=== PATIENT | female | born 1995 | race African-American/Black ===

== ENCOUNTER → 2017-01-03 | Emergency (ER) | payer SELFPAY ==
[~2017-01-03] VITALS: Ht 162.6 cm; Wt 49.9 kg
[~2017-01-03] MED LIST: CEPH500C PO; DOXY100C42 PO; LIDOCAINE/EPI 1%-1:100,000 (XYLOCAINE) 20ML INJ ONE; METR500T PO; NAPR500T3 PO
--- NOTE | 2017-01-03 11:01 | ED Upper Extremity ---
General Chief Complaint: Laceration Stated Complaint: RIGHT ARM LAC Nursing Triage Note: PT HIT A WINDOW IN ANGER AND HER RIGHT ARM WENT THROUGH IT. PT HAS TWO DEEP LACERATIONS APPROXIMATELY 2 INCHES LONG TO THE RIGHT FOREARM. BLEEDING IS MINIMAL AT THIS TIME. RIGHT RADIAL PULSE PRESENT Source: patient Exam Limitations: no limitations History of Present Illness Time seen by provider: 11:00 Initial Comments to ER with laceration to the volar side of the right forearm after she punched a window at home out of anger Onset: just prior to arrival Severity: moderate Pain/Injury Location: right forearm Method of Injury: unknown Modifying Factors: Worse With Movement Allergies and Home Medications Allergies Coded Allergies: No Known Drug Allergies (Verified Allergy, Unknown, 08/25/07) Constitutional: see HPI EENTM: see HPI Respiratory: no symptoms reported Cardiovascular: no symptoms reported Genitourinary: no symptoms reported Musculoskeletal: no symptoms reported Skin: see HPI Psychiatric/Neurological: No Symptoms Reported Past Mvpvkrq-Kibmrp-Bqupfi Hx Patient Social History Alcohol Use: Occasionally Uses Recreational Drug Use: Yes Drug of Choice: MARIJUANA Smoking Status: Current Everyday Smoker Type Used: Cigarettes Recent Foreign Travel: No Contact w/Someone Who Travel: No Recent Infectious Disease Expo: No Recent Hopitalizations: Yes (only at age 6 when spleen repaired and appendectomy ) Surgeries HX Surgeries: Yes Surgeries: Abdominal, Eye Surgery Respiratory Hx Respiratory Disorders: No Cardiovascular Hx Cardiac Disorders: No Neurological Hx Neurological Disorders: No Reproductive System Hx Reproductive Disorders: No Female Reproductive Disorders: Denies Genitourinary Hx Genitourinary Disorders: Yes Genitourinary Disorders: UTI-Chronic Gastrointestinal Hx Gastrointestinal Disorders: Yes Musculoskeletal Hx Musculoskeletal Disorders: No Endocrine Hx Endocrine Disorders: No HEENT HX ENT Disorders: Yes (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 ) Cancer Hx Cancer: No Psychosocial Hx Psychiatric Problems: No Integumentary HX Skin/Integumentary Disorder: No Blood Transfusions Hx Blood Disorders: No Physical Exam Vital Signs Vital Sign - Last 12Hours 01/03/17 10:43 Temp 98.0 Pulse 70 Resp 16 B/P (MAP) 127/102 Capillary Refill : General Appearance: WD/WN, no apparent distress HEENT: PERRL/EOMI, normal ENT inspection Neck: non-tender, full range of motion Respiratory: no respiratory distress, no accessory muscle use Gastrointestinal: non tender, soft Shoulder: normal inspection, non-tender Elbow/Forearm: Right, limited ROM (several lacerations to the volar surface of the right forearm to the longest her about 4 cm in length and depth is to the muscle fascia. She has strong radial pulse. I'm not able to palpate the ulnar pulse but she has a positive Alexander's test.) Laceration Repair : Wound Location: Upper Extremities Wound Length (cm): 9 Wound's Depth, Shape: into muscle Wound Explored: clean Irrigated w/ Saline (ccs): 200 Anesthesia: Lidocaine w/ Epi Volume Anesthetic (ccs): 10 Suture: Prolene Suture Size: 4-0 Number of Sutures: 9 Layer Closure?: 1 Number Deep Layer Sutures: 0 Progress 10 mL of 1 percent lidocaine with epinephrine. Wound was then closed with a total of 7 simple interrupted sutures size 4-0 Prolene and 2 running sutures size 4-0 Prolene. Progress/Results/Core Measures Results/Orders My Orders Orders - FIDELIA VALDEZ APRN Lidocaine/Epi 1% 1:100,000 (Xylocaine /E (01/03/17 11:00) Forearm, Right, 2 Views (01/03/17 11:00) Medications Given in ED Current Medications Medications Dose Ordered Sig/Bradley Route Start Time Stop Time Status Last Admin Dose Admin Lidocaine/ Epinephrine 20 ml ONCE ONCE INJ 01/03/17 11:00 01/03/17 11:01 DC 01/03/17 11:11 10 ML Vital Signs/I&O Vital Sign - Last 12Hours 01/03/17 10:43 Temp 98.0 Pulse 70 Resp 16 B/P (MAP) 127/102 Departure Impression Impression: Primary Impression: Forearm laceration Disposition: HOME, SELF-CARE Condition: Stable Departure-Patient Inst. Decision time for Depature: 11:43 Referrals: [facility] (PCP/Family) Primary Care Physician Patient Instructions: Laceration Repair With Stitches (DC) Add. Discharge Instructions: 1. Keep this area clean and covered and dry today 2. Starting tomorrow you may take the bandage off leaving it open to air. If you're at work he may keep it covered with a Band-Aid 3. You may let water run over it in the shower starting tomorrow 4. Return to ER for any infection signs such as redness, pus like drainage or any other concerns 5. Keep the dressing on it today 6. Antibiotics as directed 7. Return to the emergency room in 7-10 days, probably closer to 10 days to have the stitches removed All discharge instructions reviewed with patient and/or family. Voiced understanding. Scripts Cephalexin (Cephalexin) 500 Mg Capsule 500 MG PO TID for 7 Days, CAP Prov: FIDELIA VALDEZ APRN 01/03/17 FIDELIA VALDEZ APRN Jan 03, 2017 11:01
--- NOTE | 2017-01-03 11:41 | Diagnostic Imaging Report ---
INDICATION: Lacerations by glass. FINDINGS: Extensive soft tissue irregularities involving the mid third of the forearm along its palmar and ulnar aspect. Air and fluid and soft tissue distortion owing to the lacerations could obscure an underlying foreign body. No opaque foreign body is found. There is no fracture. IMPRESSION: Extensive soft tissue injury, but no appreciable retained opaque foreign body or osseous injury. Dictated by: Dictated on workstation # [id number]
== END | disposition home or self-care (01) ==
LOC: EDUNIT# 10:38 → ER 10:41
DX: S51.811A Laceration without foreign body of right forearm, initial encounter (principal); F17.210 Nicotine dependence, cigarettes, uncomplicated; W25.XXXA Contact with sharp glass, initial encounter; Y99.8 Other external cause status
CPT/HCPCS: 73090; 99282

== ENCOUNTER → 2017-01-11 | Emergency (ER) | payer SELFPAY ==
[~2017-01-11] VITALS: Ht 162.6 cm; Wt 50.1 kg
[~2017-01-11] MED LIST changes: -LIDOCAINE/EPI 1%-1:100,000 (XYLOCAINE) 20ML INJ ONE
[2017-01-11 14:28] VITALS: BP 138/74
== END | disposition home or self-care (01) ==
LOC: EDUNIT# 13:41 → ER 13:43
DX: S51.811D Laceration without foreign body of right forearm, subsequent encounter (principal)

== ENCOUNTER 2017-01-14 17:23 | Emergency (ER) | payer SELFPAY ==
[~2017-01-14] VITALS: Ht 162.6 cm; Wt 49.0 kg
[2017-01-14 17:55] VITALS: BP 120/89
== END 2017-01-14 17:55 | disposition home or self-care (01) ==
LOC: EDUNIT# 17:23 → ER 17:24
DX: S51.811D Laceration without foreign body of right forearm, subsequent encounter (principal)

== ENCOUNTER 2017-01-17 17:52 | Emergency (ER) | payer SELFPAY ==
[~2017-01-17] VITALS: Ht 163.2 cm; Wt 49.0 kg
--- NOTE | 2017-01-17 18:23 | ED Syncope ---
General Chief Complaint: Dizziness/Syncope Stated Complaint: FAINTING Source of Information: Patient Exam Limitations: No Limitations History of Present Illness Time Seen by Provider: 18:20 Initial Comments To ER with c/o syncope tonight while at work at [employer]. She states that immediately before passing out she felt very hot and flushed and she could hear voices seemingly getting further away. She states that she then remembers just waking up. Afterwards she did vomit once. She's never passed out before though she did nearly pass out a few days ago while she was here having sutures removed from the right forearm. She did smoke marijuana earlier today. Timing/Prior Episodes: No Prior History Precipitating Factors: None Loss of Consciousness: No Loss of Consciousness Current Symptoms: No Headache, No Nausea Allergies and Home Medications Allergies Coded Allergies: No Known Drug Allergies (Verified Allergy, Unknown, 08/25/07) Home Medications Cephalexin 500 Mg Capsule, 500 MG PO TID for 7 Days Prescribed by: FIDELIA VALDEZ on 01/03/17 0605 Constitutional: see HPI EENTM: see HPI Respiratory: see HPI, No cough, No hemoptysis, No short of breath Cardiovascular: no symptoms reported Genitourinary: no symptoms reported Musculoskeletal: no symptoms reported Skin: no symptoms reported Psychiatric/Neurological: No Symptoms Reported Past Ijqeens-Phtfjl-Cspzob Hx Patient Social History Drug of Choice: MARIJUANA Type Used: Cigarettes Recent Hopitalizations: Yes (only at age 6 when spleen repaired and appendectomy ) Surgeries HX Surgeries: Yes Surgeries: Abdominal, Eye Surgery Respiratory Hx Respiratory Disorders: No Cardiovascular Hx Cardiac Disorders: No Neurological Hx Neurological Disorders: No Reproductive System Hx Reproductive Disorders: No Female Reproductive Disorders: Denies Genitourinary Hx Genitourinary Disorders: Yes Genitourinary Disorders: UTI-Chronic Gastrointestinal Hx Gastrointestinal Disorders: Yes Musculoskeletal Hx Musculoskeletal Disorders: No Endocrine Hx Endocrine Disorders: No HEENT HX ENT Disorders: Yes (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 ) Cancer Hx Cancer: No Psychosocial Hx Psychiatric Problems: No Integumentary HX Skin/Integumentary Disorder: No Blood Transfusions Hx Blood Disorders: No Physical Exam Vital Signs Vital Sign - Last 12Hours 01/17/17 18:14 Temp 99.2 Pulse 97 Resp 20 B/P (MAP) 129/98 O2 Delivery Room Air Capillary Refill : General Appearance: No Apparent Distress, WD/WN HEENT: PERRL/EOMI, TMs Normal Neck: Full Range of Motion, Normal Inspection Cardiovascular: Regular Rate, Rhythm, Normal Peripheral Pulses Respiratory: Normal Breath Sounds, No Accessory Muscle Use, No Respiratory Distress Gastrointestinal: Non Tender, Soft Neurologic/Psychiatric: Alert, Oriented x3, No Motor/Sensory Deficits Cranial Nerves: Normal Hearing, Normal Speech, PERRL Skin: Normal Color, Warm/Dry Laceration Repair : Suture Size: 4-0 Progress/Results/Core Measures Results/Orders Lab Results Laboratory Tests Test 01/17/17 18:43 01/17/17 18:44 Range/Units White Blood Count 5.4 4.3-11.0 10^3/uL Red Blood Count 4.79 4.35-5.85 10^6/uL Hemoglobin 9.6 L 11.5-16.0 G/DL Hematocrit 32 L 35-52 % Mean Corpuscular Volume 66 L 80-99 FL Mean Corpuscular Hemoglobin 20 L 25-34 PG Mean Corpuscular Hemoglobin Concent 30 L 32-36 G/DL Red Cell Distribution Width 16.3 H 10.0-14.5 % Platelet Count 211 130-400 10^3/uL Mean Platelet Volume 11.9 H 7.4-10.4 FL Neutrophils (%) (Auto) 56 42-75 % Lymphocytes (%) (Auto) 29 12-44 % Monocytes (%) (Auto) 12 0-12 % Eosinophils (%) (Auto) 2 0-10 % Basophils (%) (Auto) 1 0-10 % Neutrophils # (Auto) 3.0 1.8-7.8 X 10^3 Lymphocytes # (Auto) 1.6 1.0-4.0 X 10^3 Monocytes # (Auto) 0.7 0.0-1.0 X 10^3 Eosinophils # (Auto) 0.1 0.0-0.3 10^3/uL Basophils # (Auto) 0.0 0.0-0.1 10^3/uL D-Dimer 0.35 0.00-0.49 UG/ML Sodium Level 137 135-145 MMOL/L Potassium Level 3.8 3.6-5.0 MMOL/L Chloride Level 107 98-107 MMOL/L Carbon Dioxide Level 19 L 21-32 MMOL/L Anion Gap 11 5-14 MMOL/L Blood Urea Nitrogen 15 7-18 MG/DL Creatinine 0.74 0.60-1.30 MG/DL Estimat Glomerular Filtration Rate > 60 BUN/Creatinine Ratio 20 Glucose Level 81 70-105 MG/DL Calcium Level 9.2 8.5-10.1 MG/DL Total Bilirubin 0.6 0.1-1.0 MG/DL Aspartate Amino Transf (AST/SGOT) 16 5-34 U/L Alanine Aminotransferase (ALT/SGPT) 6 0-55 U/L Alkaline Phosphatase 43 40-136 U/L Total Protein 7.2 6.4-8.2 G/DL Albumin 4.1 3.2-4.5 G/DL Urine Color YELLOW Urine Clarity SLIGHTLY CLOUDY Urine pH 8 5-9 Urine Specific [place] 1.015 L 1.016-1.022 Urine Protein NEGATIVE NEGATIVE Urine Glucose (UA) NEGATIVE NEGATIVE Urine Ketones NEGATIVE NEGATIVE Urine Nitrite NEGATIVE NEGATIVE Urine Bilirubin NEGATIVE NEGATIVE Urine Urobilinogen NORMAL NORMAL MG/DL Urine Leukocyte Esterase NEGATIVE NEGATIVE Urine RBC (Auto) NEGATIVE NEGATIVE Urine RBC NONE /HPF Urine WBC NONE /HPF Urine Squamous Epithelial Cells NONE /HPF Urine Crystals NONE /LPF Urine Amorphous Sediment LARGE AIDA PHOSPHATE H /LPF Urine Bacteria NEGATIVE /HPF Urine Casts NONE /LPF Urine Mucus NEGATIVE /LPF Urine Culture Indicated NO Urine Opiates Screen NEGATIVE NEGATIVE Urine Oxycodone Screen NEGATIVE NEGATIVE Urine Methadone Screen NEGATIVE NEGATIVE Urine Propoxyphene Screen NEGATIVE NEGATIVE Urine Barbiturates Screen NEGATIVE NEGATIVE Ur Tricyclic Antidepressants Screen NEGATIVE NEGATIVE Urine Phencyclidine Screen NEGATIVE NEGATIVE Urine Amphetamines Screen NEGATIVE NEGATIVE Urine Methamphetamines Screen NEGATIVE NEGATIVE Urine Benzodiazepines Screen NEGATIVE NEGATIVE Urine Cocaine Screen NEGATIVE NEGATIVE Urine Cannabinoids Screen POSITIVE H NEGATIVE My Orders Orders - FIDELIA VALDEZ SALES OFFICE COORDINATOR Cbc With Automated Diff (01/17/17 18:19) Fibrin Degradation Products (01/17/17 18:19) Comprehensive Metabolic Panel (01/17/17 18:19) Continuous Ekg Monitoring (01/17/17 18:19) Saline Lock/Iv-Start (01/17/17 18:19) Ns Iv 1000 Ml (Sodium Chloride 0.9%) (01/17/17 18:30) Ua Culture If Indicated (01/17/17 18:27) Urine Bedside (01/17/17 18:27) Drug Screen Stat (Urine) (01/17/17 18:27) Vital Signs/I&O Vital Sign - Last 12Hours 01/17/17 18:14 Temp 99.2 Pulse 97 Resp 20 B/P (MAP) 129/98 O2 Delivery Room Air Departure Communication Progress Notes 1917-ALert, laughing, pleasant, stable vitals during ER stay.l Impression Impression: Primary Impression: Syncope and collapse Disposition: HOME, SELF-CARE Condition: Stable Departure-Patient Inst. Decision time for Depature: 19:18 Referrals: NO,LOCAL PHYSICIAN (PCP/Family) Primary Care Physician Patient Instructions: Syncope (Fainting) (DC) Add. Discharge Instructions: 1. Drink plenty of fluids 2. Return to ER for any recurrent lightheadedness, palpitations, shortness of breath or other concerns All discharge instructions reviewed with patient and/or family. Voiced understanding. FIDELIA VALDEZ SALES OFFICE COORDINATOR Jan 17, 2017 18:22
[2017-01-17] MEDS ORDERED: NS IV 1000 ML 1,000 ML IV SCH (18:30)
[2017-01-17 18:52] LABS: BILIRUBIN,URINE NEGATIVE (NEGATIVE); KETONES,URINE NEGATIVE (NEGATIVE); LEUKOCYTE ESTERASE ,URINE NEGATIVE (NEGATIVE); NITRITE,URINE NEGATIVE (NEGATIVE); PH,URINE 8 (5-9); PROTEIN,URINE NEGATIVE (NEGATIVE); UROBILINOGEN,URINE NORMAL (NORMAL)
[2017-01-17 18:55] LABS: BASOPHILS % (AUTO) 1 % (0-10); EOSINOPHILS # (AUTO) 0.1 10^3/uL (0.0-0.3); EOSINOPHILS % (AUTO) 2 % (0-10); LYMPHOCYTES # (AUTO) 1.6 X 10^3 (1.0-4.0); LYMPHOCYTES % (AUTO) 29 % (12-44); MEAN CORPUSCULAR HEMOGLOBIN 20 PG (25-34); MEAN CORPUSCULAR HGB CONC 30 G/DL (32-36); MEAN CORPUSCULAR VOLUME 66 FL (80-99); MEAN PLATELET VOLUME 11.9 FL (7.4-10.4); MONOCYTES # (AUTO) 0.7 X 10^3 (0.0-1.0); MONOCYTES % (AUTO) 12 % (0-12); NEUTROPHILS % (AUTO) 56 % (42-75); PLATELET COUNT 211 10^3/uL (130-400); RED BLOOD COUNT 4.79 10^6/uL (4.35-5.85); RED CELL DISTRIBUTION WIDTH 16.3 % (10.0-14.5); WHITE BLOOD COUNT 5.4 10^3/uL (4.3-11.0)
[2017-01-17 19:13] LABS: ALANINE AMINOTRANSFERASE 6 U/L (0-55); ALBUMIN 4.1 G/DL (3.2-4.5); ANION GAP 11 MMOL/L (5-14); ASPARTATE AMINO TRANSFERASE 16 U/L (5-34); BILIRUBIN,TOTAL 0.6 MG/DL (0.1-1.0); BLOOD UREA NITROGEN 15 MG/DL (7-18); BUN/CREATININE RATIO 20; CALCIUM 9.2 MG/DL (8.5-10.1); CARBON DIOXIDE 19 MMOL/L (21-32); CHLORIDE 107 MMOL/L (98-107); CREATININE SERUM 0.74 MG/DL (0.60-1.30); GFR ESTIMATED > 60; GLUCOSE 81 MG/DL (70-105); POTASSIUM 3.8 MMOL/L (3.6-5.0); SODIUM 137 MMOL/L (135-145); TOTAL PROTEIN 7.2 G/DL (6.4-8.2)
== END 2017-01-17 20:19 | disposition home or self-care (01) ==
LOC: EDUNIT# 17:52 → ER 17:54
DX: R55 Syncope and collapse (principal); F12.90 Cannabis use, unspecified, uncomplicated
CPT/HCPCS: 36415; 80053; 80306; 81000; 84703; 85025; 85379; 96360

== ENCOUNTER → 2017-10-16 | Outpatient (CLI) | payer MEDICAID ==
[~2017-10-16] MED LIST changes: -NAPR500T3 PO; +NAPR500T4 PO
--- NOTE | 2017-10-16 11:23 | Diagnostic Imaging Report ---
PROCEDURE: US OB SINGLE FETUS <14 WKS. TECHNIQUE: Multiple real-time grayscale images were obtained over the gravid uterus in various projections. INDICATION: Dating. FINDINGS: There is an intrauterine gestational sac containing a pole. Turner-rump length measurement is 2.6 cm consistent with 9 weeks 3 days gestation. heart rate was recorded at 169 beats per minute. No ambreen-gestational sac hemorrhage is detected. Yolk sac is visualized. The ovaries are not visualized. No adnexal mass or free fluid is seen. IMPRESSION: Single live IUP 9 weeks 3 days gestational age. The estimated date of confinement sonographically is 05/18/2018. Dictated by: Dictated on workstation # [id number]
== END ==
LOC: RAD 09:56
PROVIDERS: ATTEND Family Medicine
DX: Z34.01 Encounter for supervision of normal first pregnancy, first trimester (principal); Z3A.09 9 weeks gestation of pregnancy
CPT/HCPCS: 76801

== ENCOUNTER → 2018-03-23 | Outpatient (CLI) | payer MEDICAID ==
[~2018-03-23] MED LIST changes: +NAPR-915 PO; -NAPR500T4 PO
== END ==
LOC: LAB 10:43
PROVIDERS: ATTEND Family Medicine
DX: O36.1930 Maternal care for other isoimmunization, third trimester, not applicable or unspecified (principal)
CPT/HCPCS: 86886

== ENCOUNTER → 2018-04-16 | Outpatient (CLI) | payer MEDICAID ==
--- NOTE | 2018-04-16 14:48 | Diagnostic Imaging Report ---
INDICATION: Decreased fundal height. TECHNIQUE: Multiple real-time grayscale images were obtained over the gravid uterus. COMPARISON: 10/16/2017. FINDINGS: The previous OB ultrasound exam of 10/16/2017 noted a single live fetus at approximately 9 weeks 3 days gestation. On this exam, the fetus is again identified. The fetus is cephalic in presentation. heart motion was noted and a rate of 160 BPM was recorded. A complete survey was not obtained. Reportedly, the patient has had a prior survey at [facility] in [place], [place]. The amount of fluid volume is 12 cm (normal 8 to 22 cm). The placenta is anterior and there is no previa. The placenta is grade 3. The growth parameters average 35 weeks 4 days +/-3.5 weeks. The estimated weight is in the 74th percentile. The cervix was not well visualized due to the low position of the head. IMPRESSION: 1. There is a single live fetus at approximately 35 weeks 3 days gestation +/-1 week. The EDC remains May 18, 2018. 2. There were no obvious abnormalities identified. 3. The growth parameters have progressed as expected since the prior exam. Biometrical measurements are as follows: Biparietal 8.3 cm, age 33 weeks 3 days. Head circumference 31.31 cm, age 35 weeks 1 days. Abdominal circumference 33.52 cm, age 37 weeks 3 days. Femur length 7.03 cm, age 36 weeks 1 days. Sonographic estimate age: 35 weeks 4 days. Sonographic estimated date of delivery: 05/17/2018. Estimated Weight: 2915 gm (+/- 426 gm). LMP percentile: 74%. heart rate: 160 beats per minute. number: 1 of 1. Dictated by: Dictated on workstation # [id number]
== END ==
LOC: RAD 13:04
PROVIDERS: ATTEND Family Medicine
DX: O26.843 Uterine size-date discrepancy, third trimester (principal); Z3A.35 35 weeks gestation of pregnancy
CPT/HCPCS: 76816

== ENCOUNTER 2018-05-17 16:49 | Outpatient (CLI) | payer MEDICAID ==
[~2018-05-17] VITALS: Ht 165.1 cm; Wt 67.2 kg
[2018-05-17 17:05] VITALS: BP 152/87
[2018-05-17] MEDS ORDERED: NS IV 1000 ML 1,000 ML IV SCH ×2 (17:30→19:00)
[2018-05-17] MEDS ORDERED: morphine INJ 4 MG/ML 1 ML (VIAL/SYRINGE) IVP PRN (17:30)
[2018-05-17 18:00] VITALS: BP 133/76
[2018-05-17] MEDS ORDERED: PREN-53 PO (18:01)
[2018-05-17] MEDS ORDERED: FERR-84 PO (18:01)
[2018-05-17 19:15] VITALS: BP 130/77
--- NOTE | 2018-05-19 15:00 | Physician Query-Final Dx ---
BARNEY FELIX 05/19/18 1500: Clinic Account Progress/Dx Physician Query: Please give diagnosis Please provide dx and weeks of gestation. Date of Service May 17, 2018 at 16:49 TUCKER HAYES DO 06/03/18 0859: Clinic Account Progress/Dx DIAGNOSIS: Diagnosis 39 week GA Contractions, not in active labor BARNEY FELIX May 19, 2018 15:00 TUCKER HAYES DO Jun 03, 2018 08:59
[2018-05-23] MEDS ORDERED: FERR-84 PO (11:25)
[2018-05-23] MEDS ORDERED: IBUP-844 PO (11:25)
== END 2018-05-17 21:30 | disposition home or self-care (01) ==
LOC: WSo 16:49 → LDRP 16:49 → WSo 21:30
PROVIDERS: ATTEND Family Medicine
DX: O47.1 False labor at or after 37 completed weeks of gestation (principal); Z3A.39 39 weeks gestation of pregnancy
CPT/HCPCS: 96361; 96374; 99214

== ENCOUNTER 2018-05-19 11:55 | Outpatient (CLI) | payer MEDICAID ==
[~2018-05-19] VITALS: Ht 165.1 cm; Wt 67.2 kg
[~2018-05-19 11:55] MED LIST changes: +FERR-84 PO; +PREN-53 PO
[2018-05-19 12:15] VITALS: BP 138/86
[2018-05-19 12:45] VITALS: BP 127/86
[2018-05-19 13:20] VITALS: BP 135/97
[2018-05-19 13:21] VITALS: BP 131/82
--- NOTE | 2018-05-21 20:54 | Physician Query-Final Dx ---
BARNEY FELIX 05/21/184: Clinic Account Progress/Dx Physician Query: Please give diagnosis Please provide diagnosis and weeks of gestation Date of Service May 19, 2018 at 11:55 BERRY COOK MD 05/22/18 1635: Clinic Account Progress/Dx DIAGNOSIS: Diagnosis 40 weeks gestation Contractions without active labor BARNEY FELIX May 21, 2018 20:54 BERRY COOK MD May 22, 2018 16:35
== END 2018-05-19 13:35 | disposition home or self-care (01) ==
LOC: WSo 11:55 → LDRP 11:55 → WSo 13:35
PROVIDERS: ATTEND Family Medicine
DX: O47.1 False labor at or after 37 completed weeks of gestation (principal); Z3A.40 40 weeks gestation of pregnancy
CPT/HCPCS: 99213

== ENCOUNTER 2018-05-20 19:21 | Inpatient (IN) | payer MEDICAID ==
[~2018-05-20] VITALS: Ht 165.1 cm; Wt 69.9 kg
[2018-05-20 19:35] VITALS: BP 127/81
[2018-05-20] MEDS ORDERED: D5 LR IV SOLUTION 1,000 ML IV ONE (19:55)
[2018-05-20] MEDS: D5 LR IV SOLUTION 1,000 ML IV SCH (20:05)
[2018-05-20] MEDS ORDERED: LACTATED RINGERS 1,000 ML IV ONE (20:29)
--- NOTE | 2018-05-20 20:42 | History & Physical-OB ---
OB - Chief Complaint & HPI Date/Time Date of Admission: Date of Admission: May 20, 2018 at 7:21 pm Time Seen by Provider: 20:15 Chief Complaint/History OB-Reason for Admission/Chief: Induction of Labor Hx : 1 Hx Para: 0 Expected Date of Delivery: May 18, 2018 Gestational Age in Weeks: 40 Gestational Age in Days: 2 Indication for induction: post dates History of Labs B+, antibody POS for anti-K, RI. HIV/hepB/RPR NR. GC/chlamydia neg. Glucola normal. GBS Pos. Other complicated by anti-K antibody initially at 1:4, consulted with MFM and FOB had negative antigen testing, MFM recommended q2 mo titers and initiate MCA dopplers if increased to 1:16. Titer never increased from 1:4, last check on 03/23. 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 Social History/Family History HIV/AIDS: No Recent Infectious Disease Expo: No Sexually Transmitted Disease: No Alcohol Use: Denies Use Recreational Drug Use: No (history of THC before ) Smoking Cessation: Former smoker 2nd Hand Smoke Exposure: Yes Immunizations Tetanus Booster (TDap): Less than 5yrs Rubella: immune RPR/VDRL: Negative GBS Status: Positive HBsAG: Negative OB - Admission Exam Physical Exam HEENT: NCAT Abdomen: Non tender Extremities: Normal Cervical Dilatation: 3cm Effacement: 0% Station: -1 Membranes: Intact Heart Rate: 150's Accelerations: Accelerations Present Decelerations: Variable Decelerations Short Term Variability: Present Fci Variability: Marked (>25) Contractions on Admission: 6-10 Minutes Apart Intensity: Mild Ashby Scoring Tool (Modified) Dilation (cm): 3-4cm (2) Effacement (%): 0-30% (0) Descent/Station: -1,0 (2) Cervix Consistency: Medium(1) Cervix Position: Posterior (0) Subtract 1 point for: Postdate (-1), Nulliparity (-1) Ashby Score: 3 OB - Assessment/Plan/Diagnosis Assessment Assessment: induction of labor Admission Dx 40 weeks gestation Induction of labor Anti-K antibody positive Iron deficiency anemia GBS positive Admission Status: Inpatient Order (span 2 midnights) Reason for Inpatient Admission: Labor and delivery and course Plan Plan: Induction Induction Method: per Misoprostol Protocol Copy Copies To 1: BERRY COOK MD, BETHANY N MD May 20, 2018 8:42 pm
[2018-05-20] MEDS ORDERED: AMPICILLIN FOR IV USE 2,000 MG in NS (IVPB) 50 ML IV SCH (20:47)
[2018-05-20 20:59] LABS: BASOPHILS % (AUTO) 0 % (0-10); EOSINOPHILS # (AUTO) 0.3 10^3/uL (0.0-0.3); EOSINOPHILS % (AUTO) 4 % (0-10); HEMATOCRIT 37 % (35-52); HEMOGLOBIN 12.5 G/DL (11.5-16.0); LYMPHOCYTES # (AUTO) 1.6 X 10^3 (1.0-4.0); LYMPHOCYTES % (AUTO) 18 % (12-44); MEAN CORPUSCULAR HEMOGLOBIN 27 PG (25-34); MEAN CORPUSCULAR HGB CONC 34 G/DL (32-36); MEAN CORPUSCULAR VOLUME 80 FL (80-99); MONOCYTES # (AUTO) 0.7 X 10^3 (0.0-1.0); MONOCYTES % (AUTO) 9 % (0-12); NEUTROPHILS # (AUTO) 5.9 X 10^3 (1.8-7.8); NEUTROPHILS % (AUTO) 69 % (42-75); PLATELET COUNT 140 10^3/uL (130-400); RED BLOOD COUNT 4.59 10^6/uL (4.35-5.85); RED CELL DISTRIBUTION WIDTH 16.9 % (10.0-14.5); WHITE BLOOD COUNT 8.5 10^3/uL (4.3-11.0)
[2018-05-20] MEDS ORDERED: TERBUTALINE INJ 1 MG/ML (BRETHINE) AMP SC PRN (21:00)
[2018-05-20] MEDS ORDERED: MISOPROSTOL 100 MCG (CYTOTEC) TAB PO ONE (21:00)
[2018-05-20] MEDS ORDERED: NS (IVPB) 50 ML ONE (21:06)
[2018-05-20] MEDS ORDERED: CALCIUM CARBONATE 500 MG (TUMS) TAB.CHEW PO ONE (22:30)
[2018-05-20 23:47] VITALS: BP 129/81
[2018-05-21] VITALS (52 sets, daily range): BP systolic 108–183; BP diastolic 58–110
[2018-05-21] MEDS: AMPICILLIN FOR IV USE 1,000 MG in NS (IVPB) 50 ML IV SCH ×3 (00:47→09:48)
[2018-05-21] MEDS ORDERED: MISOPROSTOL 100 MCG (CYTOTEC) TAB PO SCH (01:00)
[2018-05-21] MEDS: fentaNYL INJECTION 100 MCG/2 ML AMP IVP PRN ×2 (03:41→05:31)
[2018-05-21] MEDS: D5 LR IV SOLUTION 1,000 ML IV SCH ×2 (04:00→08:49)
--- OUTSIDE RECORDS SUMMARY | 2018-05-21 05:27 | XMS REPORT ---
Author Author JOEY BERRY [facility] Address [address] [place] [address] Care Team Providers Care Arborist Name Role Phone BERRY COOK Unavailable PROBLEMS Type Condition ICD9-CM Code UUI53-BA Code Onset Dates Condition Status SNOMED Code Problem Microcytic anemia D50.9 Active 737138305 Problem Fever, unspecified R50.9 Active 086638913 Problem Weight loss R63.4 Active 74554227 Problem Dysmenorrhea N94.6 Active 244997361 Problem Generalized anxiety disorder F41.1 Active 00433899 Problem Sciatica of right side M54.31 Active 42312655 Problem [place] isoimmunization during in first trimester, single or unspecified fetus O36.1910 Active 138204865 Problem Anemia affecting in first trimester O99.011 Active 96806838 Problem Mild episode of recurrent major depressive disorder F33.0 Active 872975968 Problem Red blood cell antibody positive R76.8 Active 668237112 ALLERGIES Substance Reaction Event Type Date Status Oxycodone HCl nausea Drug Allergy Dec, Active ENCOUNTERS Encounter Location Date Diagnosis [facility] [address] [place] [address] 46614- 7300 Apr, [facility] [address] [place] [address] 61999- 0675 Apr, [facility] [id number] [place] [address] 40393- 6862 Apr, [facility] [id number] [place] [address] 60632- 3772 Mar, Third trimester Z34.93 ; Fundal height low for dates in third trimester O26.843 and 34 weeks gestation of Z3A.34 [facility] [id number] [place] [address] 27661- 4914 Mar, 32 weeks gestation of Z3A.32 and care, first in third trimester Z34.03 [place] [id number] [place] [address] 63271- 2212 19 Feb, 2018 Third trimester Z34.93 ; Encounter for immunization Z23 and 30 weeks gestation of Z3A.30 [place] [address] [address]- [address]10 January, [place] isoimmunization during in first trimester, single or unspecified fetus O36.1910 ; Diabetes mellitus screening Z13.1 ; 25 weeks gestation of Z3A.25 and care, first in second trimester Z34.02 [place] [id number] [place] [address] 20201- 4328 Dec, [place] [id number] [place] [address] 12575- 4175 Dec, [place] isoimmunization during in second trimester, single or unspecified fetus O36.1920 and 20 weeks gestation of Z3A.20 [place] [id number] [place] [address] 63902- 9702 15 Nov, 2017 Normal , first Z34.00 and 16 weeks gestation of Z3A.16 [place] [id number] [place] [address] 00712- 3996 15 Oct, 2017 Normal , first Z34.00 ; Sciatica of right side M54.31 ; 12 weeks gestation of Z3A.12 and [place] isoimmunization during in first trimester, single or unspecified fetus O36.1910 [place] [id number] [place] [address] 34137- 2598 Sep, [place] [address] [address]- 4893 Sep, Normal , first Z34.00 ; Anemia affecting in first trimester O99.011 and 9 weeks gestation of Z3A.09 [place] [address] [address] 8368 16 Sep, 2017 [facility] [address] [address] 2561 Sep, [facility] [address] [address] 7896 Sep, 8 weeks gestation of Z3A.08 ; Fever, unspecified R50.9 ; Missed menses N92.6 and Weight loss R63.4 [facility] [address] [address] 0361 Aug, [facility] [id number] [place] [address] 58063- 0392 Aug, [facility] [address] [address] 5931 Apr, Microcytic anemia D50.9 and Dysmenorrhea N94.6 [facility] [address], [place] [address] 8576 Apr, [facility] [address] [address] 9420 Apr, [facility] [address] [address]- 8916 Mar, Dysmenorrhea N94.6 [facility] [address] [address] 1932 Mar, Dysmenorrhea N94.6 [facility] [address] [address] 4677 Jun, [facility] [address] 0342 Jun, [facility] [address] [address] 3592 Jul, [facility] [address] 5225 Sep, [facility] [address] [facility] [id number] [place] [address]- 5964 Apr, [facility] [address] [facility] [id number] [place] [address]- 4416 Oct, IMMUNIZATIONS No Known Immunizations SOCIAL HISTORY Never Assessed REASON FOR VISIT OB f/u-4 wk -- jeannie lópez PLAN OF CARE Activity Details Follow Up 4 Weeks, 4 Weeks, 4 Weeks Reason: VITAL SIGNS Height 64.25 in 2018-01-01 Weight 113.0 lbs 2018-01-01 Temperature 98.1 degrees Fahrenheit 2018-01-01 Heart Rate 68 bpm 2018-01-01 Respiratory Rate 18 2018-01-01 BMI 19.246 kg/m2 2018-01-01 Blood pressure systolic 106 mmHg 2018-01-01 Blood pressure diastolic 66 mmHg 2018-01-01 MEDICATIONS Medication Instructions Dosage Frequency Start Date End Date Duration Status Ferrous Sulfate 325 (65 Fe) MG Orally Once a day 1 tablet 24h Sep, 30 day(s) Active 28-0.8 MG Orally daily 1 24h Sep, Not-Taking Vitamin 27-0.8 MG Orally Once a day as directed 24h Sep, 30 days Active RESULTS Name Result Date Reference Range UA OB DIP (IN HOUSE) 2018-01-01 Glucose negative Protein negative PROCEDURES Procedure Date Ordered Result Body Site URINE-NO MICRO January 01, 2018 INSTRUCTIONS MEDICATIONS ADMINISTERED No Known Medications MEDICAL (GENERAL) HISTORY Type Description Date Medical History depression Medical History anxiety Medical History PTSD Surgical History part of spleen removed 2001 Surgical History corneal transplant 2016 Hospitalization History surgery Hospitalization History suicidal ([place]) 2014
--- OUTSIDE RECORDS SUMMARY | 2018-05-21 05:27 | XMS REPORT ---
Author Author JOEY BERRY [facility] Address [address] [place] [address] Care Team Providers Care Reception Agent Name Role Phone NOLBERTO COOKY Unavailable PROBLEMS Type Condition ICD9-CM Code LQP14-FB Code Onset Dates Condition Status SNOMED Code Problem Microcytic anemia D50.9 Active 839587682 Problem Fever, unspecified R50.9 Active 767200410 Problem Weight loss R63.4 Active 21798545 Problem Dysmenorrhea N94.6 Active 766915287 Problem Generalized anxiety disorder F41.1 Active 38626930 Problem Sciatica of right side M54.31 Active 94957720 Problem [place] isoimmunization during in first trimester, single or unspecified fetus O36.1910 Active 556125856 Problem Anemia affecting in first trimester O99.011 Active 35620647 Problem Mild episode of recurrent major depressive disorder F33.0 Active 270861040 Problem Red blood cell antibody positive R76.8 Active 406274472 ALLERGIES No Information ENCOUNTERS Encounter Location Date Diagnosis [place] [address] [place] [address] 90372- 0437 Apr, [place] [address] [place] [address] 09953- 8006 Apr, [place] [address] [address] [id number] [place] [address] 73439- 5499 Apr, [place] [id number] [place] [address] 18590- 3808 Mar, Third trimester Z34.93 ; Fundal height low for dates in third trimester O26.843 and 34 weeks gestation of Z3A.34 [place] [address] [place] [address] 25759- 2821 Mar, 32 weeks gestation of Z3A.32 and care, first in third trimester Z34.03 [place] [id number] [place] [address] 39339- 8965 Feb, Third trimester Z34.93 ; Encounter for immunization Z23 and 30 weeks gestation of Z3A.30 [place] [address] [id number] [place] [address] 07469- 1822 January, [place] isoimmunization during in first trimester, single or unspecified fetus O36.1910 ; Diabetes mellitus screening Z13.1 ; 25 weeks gestation of Z3A.25 and care, first in second trimester Z34.02 [place] [id number] [place] [address] 06082- 0993 Dec, [place] [id number] [place] [address] 29844- 1607 Dec, [place] isoimmunization during in second trimester, single or unspecified fetus O36.1920 and 20 weeks gestation of Z3A.20 [place] [id number] [place] [address] 43951- 3616 15 Nov, 2017 Normal , first Z34.00 and 16 weeks gestation of Z3A.16 [place] [address] [place] [address] 08366- 8434 15 Oct, 2017 Normal , first Z34.00 ; Sciatica of right side M54.31 ; 12 weeks gestation of Z3A.12 and [place] isoimmunization during in first trimester, single or unspecified fetus O36.1910 [place] [id number] [address]- 6018 Sep, [place] [id number] [place] [address] 08859- 6892 Sep, Normal , first Z34.00 ; Anemia affecting in first trimester O99.011 and 9 weeks gestation of Z3A.09 [place] [address] [id number] [place] [address] 31734- 1607 Sep, [facility] [address] 9680 Sep, [facility] [id number] [address]- 3136 Sep, 8 weeks gestation of Z3A.08 ; Fever, unspecified R50.9 ; Missed menses N92.6 and Weight loss R63.4 [facility] [id number] [address]- 2498 Aug, [facility] [id number] [place] [address] 808203- 0083 Aug, [facility] [id number] [place] [address] 138915- 9466 Apr, Microcytic anemia D50.9 and Dysmenorrhea N94.6 [facility] [id number] [place] [address] 63628- 1133 Apr, [facility] [address], [place] [address]- 5350 Apr, [facility] [address], [place] [address]- 5775 Mar, Dysmenorrhea N94.6 [facility] [address] 5212 Mar, Dysmenorrhea N94.6 [facility] [address]- 7186 Jun, [facility] [address] [address]- 8846 Jun, [facility] [address], [place] [address]- 7166 Jul, [facility] [address], [place] [address]- 4006 Sep, [facility] [id number] [address]- 7789 Apr, [facility] [address] [facility] [id number] [place] [address]- 0205 Oct, IMMUNIZATIONS No Known Immunizations SOCIAL HISTORY Never Assessed REASON FOR VISIT vomiting PLAN OF CARE VITAL SIGNS MEDICATIONS Unknown Medications RESULTS No Results PROCEDURES No Known procedures INSTRUCTIONS MEDICATIONS ADMINISTERED No Known Medications MEDICAL (GENERAL) HISTORY Type Description Date Medical History depression Medical History anxiety Medical History PTSD Surgical History part of spleen removed 2001 Surgical History corneal transplant 2016 Hospitalization History surgery Hospitalization History suicidal ([place]) 2015
--- OUTSIDE RECORDS SUMMARY | 2018-05-21 05:27 | XMS REPORT ---
Author Author BERRY COOK [facility] Address [address] [place] [address] Care Team Providers Care Materials Engineer Name Role Phone BERRY COOK Unavailable PROBLEMS Type Condition ICD9-CM Code SSG57-QH Code Onset Dates Condition Status SNOMED Code Problem Microcytic anemia D50.9 Active 125927446 Problem Fever, unspecified R50.9 Active 782011377 Problem Weight loss R63.4 Active 48385068 Problem Dysmenorrhea N94.6 Active 115677682 Problem Generalized anxiety disorder F41.1 Active 02624714 Problem Sciatica of right side M54.31 Active 86537948 Problem [place] isoimmunization during in first trimester, single or unspecified fetus O36.1910 Active 995168183 Problem Anemia affecting in first trimester O99.011 Active 01283030 Problem Mild episode of recurrent major depressive disorder F33.0 Active 426421016 Problem Red blood cell antibody positive R76.8 Active 204157170 ALLERGIES Substance Reaction Event Type Date Status Oxycodone HCl nausea Drug Allergy Nov, Active ENCOUNTERS Encounter Location Date Diagnosis [place] [id number] [place] [address] 65768- 6101 Mar, [place] [address] [place] [id number] [place] [address] 34910- 0278 Mar, 32 weeks gestation of Z3A.32 and care, first in third trimester Z34.03 [place] [id number] [place] [address] 94415- 0201 Feb, Third trimester Z34.93 ; Encounter for immunization Z23 and 30 weeks gestation of Z3A.30 [place] [address] [place] [address] 21528- 5546 January, Nancy isoimmunization during in first trimester, single or unspecified fetus O36.1910 ; Diabetes mellitus screening Z13.1 ; 25 weeks gestation of Z3A.25 and care, first in second trimester Z34.02 [place] [id number] [place] [address] 75286- 1823 Dec, [place] [address] [id number] [place] [address] 20882- 3167 Dec, [place] isoimmunization during in second trimester, single or unspecified fetus O36.1920 and 20 weeks gestation of Z3A.20 [place] [id number] [place] [address] 47226- 9987 Nov, Normal , first Z34.00 and 16 weeks gestation of Z3A.16 [place] [address] [address] [id number] [place] [address] 16997- 0369 15 Oct, 2017 Normal , first Z34.00 ; Sciatica of right side M54.31 ; 12 weeks gestation of Z3A.12 and [place] isoimmunization during in first trimester, single or unspecified fetus O36.1910 [place] [address] [id number] [place] [address] 87252- 9195 Sep, [place] [address] [place] [address] 75285- 7220 Sep, Normal , first Z34.00 ; Anemia affecting in first trimester O99.011 and 9 weeks gestation of Z3A.09 [place] [address] [place] [address] 46434- 4728 Sep, [place] [address] [id number] [place] [address] 87007- 5864 Sep, [place] [address] [place] [address] [id number] [place] [address] 07287- 2620 Sep, 8 weeks gestation of Z3A.08 ; Fever, unspecified R50.9 ; Missed menses N92.6 and Weight loss R63.4 [place] [address] [address]- 8990 Aug, [facility] [address] 8881 Aug, [facility] [address] 1092 Apr, Microcytic anemia D50.9 and Dysmenorrhea N94.6 [facility] [address] [address]- 2016 Apr, [facility] [address] [address]- 8627 Apr, [facility] [address] [address]- 3884 Mar, Dysmenorrhea N94.6 [facility] [address] [place] [address] 40203- 5780 Mar, Dysmenorrhea N94.6 [facility] [address] [address]- 0969 Jun, [facility] [address] [address]- 4989 Jun, [facility] [address] [address]- 4930 Jul, [facility] [address] [address]- 0245 Sep, [facility] [id number] [address]- 7172 Apr, [facility] [address] [address]- 1233 Oct, IMMUNIZATIONS No Known Immunizations SOCIAL HISTORY Never Assessed REASON FOR VISIT OB f/u-4 wk--tcuppettRN PLAN OF CARE Activity Details Follow Up 4 Weeks, 4 Weeks Reason: VITAL SIGNS Height 64.25 in 2017-12-04 Weight 108.6 lbs 2017-12-04 Temperature 98.1 degrees Fahrenheit 2017-12-04 Heart Rate 76 bpm 2017-12-04 Respiratory Rate 16 2017-12-04 BMI 18.496 kg/m2 2017-12-04 Blood pressure systolic 108 mmHg 2017-12-04 Blood pressure diastolic 70 mmHg 2017-12-04 MEDICATIONS Medication Instructions Dosage Frequency Start Date End Date Duration Status Ferrous Sulfate 325 (65 Fe) MG Orally Once a day 1 tablet 24h Sep, 30 day(s) Active 28-0.8 MG Orally daily 1 24h Sep, Not-Taking Vitamin 27-0.8 MG Orally Once a day as directed 24h Sep, 30 days Active RESULTS No Results PROCEDURES Procedure Date Ordered Result Body Site URINE-NO MICRO December 04, 2017 LAB NOT BILLED BY [facility] December 04, 2017 CHEMILUMINESCENT ASSAY December 04, 2017 INSTRUCTIONS MEDICATIONS ADMINISTERED No Known Medications MEDICAL (GENERAL) HISTORY Type Description Date Medical History depression Medical History anxiety Medical History PTSD Surgical History part of spleen removed 2001 Surgical History corneal transplant 2016 Hospitalization History surgery Hospitalization History suicidal ([place]) 2014
--- OUTSIDE RECORDS SUMMARY | 2018-05-21 05:27 | XMS REPORT ---
Author Author JOEY BERRY [facility] Address [address] [place] [address] Care Team Providers Care Circuit Walker Name Role Phone NOLBERTO COOKY Unavailable PROBLEMS Type Condition ICD9-CM Code [id number] Code Onset Dates Condition Status SNOMED Code Problem Microcytic anemia D50.9 Active 628796066 Problem Fever, unspecified R50.9 Active 279028096 Problem Weight loss R63.4 Active 58144899 Problem Positive GBS test B95.1 Active 2763452871790 Problem Dysmenorrhea N94.6 Active 727668476 Problem Generalized anxiety disorder F41.1 Active 74427821 Problem Sciatica of right side M54.31 Active 53800948 Problem Nancy isoimmunization during in first trimester, single or unspecified fetus O36.1910 Active 585922795 Problem Anemia affecting in first trimester O99.011 Active 80288100 Problem Mild episode of recurrent major depressive disorder F33.0 Active 802458142 Problem Red blood cell antibody positive R76.8 Active 164031562 ALLERGIES No Information ENCOUNTERS Encounter Location Date Diagnosis [place] [address] [address] Apr, [place] [address] [place] [address] 11885- 9179 Apr, [place] [address] [place] [address] 10408- 9372 Apr, Third trimester Z34.93 and 37 weeks gestation of Z3A.37 [place] [address] [place] [address] 15740- 9280 Mar, Third trimester Z34.93 ; Fundal height low for dates in third trimester O26.843 and 34 weeks gestation of Z3A.34 [place] [address] [place] [address] 41008- 2496 Mar, 32 weeks gestation of Z3A.32 and care, first in third trimester Z34.03 [place] [address] [place] [address] [id number] [place] [address] 85807- 9243 Feb, Third trimester Z34.93 ; Encounter for immunization Z23 and 30 weeks gestation of Z3A.30 [place] [address] [address] [address] [place] [address] 58043- 2810 January, Nancy isoimmunization during in first trimester, single or unspecified fetus O36.1910 ; Diabetes mellitus screening Z13.1 ; 25 weeks gestation of Z3A.25 and care, first in second trimester Z34.02 [place] [address] [place] [address] [address] [place] [address] 32347- 2971 Dec, [place] [address] [place] [address] [address] [place] [address] 35007- 2685 Dec, Nancy isoimmunization during in second trimester, single or unspecified fetus O36.1920 and 20 weeks gestation of Z3A.20 [place] [address] [address] [place] [address] 63803- 1166 15 Nov, 2017 Normal , first Z34.00 and 16 weeks gestation of Z3A.16 [place] [address] [place] [address] [address] [place] [address] 55262- 3893 15 Oct, 2017 Normal , first Z34.00 ; Sciatica of right side M54.31 ; 12 weeks gestation of Z3A.12 and Nancy isoimmunization during in first trimester, single or unspecified fetus O36.1910 [place] [address] [place] [address] [address] [place] [address] 98499- 8589 Sep, [place] [address] [place] [address] [address] [place] [address] 49609- 7925 Sep, Normal , first Z34.00 ; Anemia affecting in first trimester O99.011 and 9 weeks gestation of Z3A.09 [facility] [address] [address] 0121 16 Sep, 2017 [facility] [address] [place] [address] 93232- 1189 16 Sep, 2017 [facility] [address] [address] 0793 10 Sep, 2017 8 weeks gestation of Z3A.08 ; Fever, unspecified R50.9 ; Missed menses N92.6 and Weight loss R63.4 [facility] [address] [address]- 1147 27 Aug, 2017 [facility] [address] [id number] [place] [address] 79846- 0432 Aug, [facility] [address] [address] 8242 08 Apr, 2017 Microcytic anemia D50.9 and Dysmenorrhea N94.6 [facility] [address] [address] 9487 Apr, [facility] [id number] [place] [address] 26382- 4501 Apr, [facility] [address] [address] 0134 Mar, Dysmenorrhea N94.6 [facility] [address] [address]- 4692 Mar, Dysmenorrhea N94.6 [facility] [address] [address] 0527 Jun, [facility] [address] [address]- 6563 Jun, [facility] [address] [address] 1896 Jul, [facility] [id number] [address] 4318 Sep, [facility] [address] [facility] [id number] [address] 5185 Apr, [facility] [address] [facility] [id number] [place] [address] 1892 Oct, IMMUNIZATIONS No Known Immunizations SOCIAL HISTORY Never Assessed REASON FOR VISIT OB f/u 4 wk -- jeannie lópez PLAN OF CARE Activity Details Follow Up 4 Weeks, 4 Weeks, 4 Weeks Reason: Pending Test UA OB DIP (IN HOUSE) VITAL SIGNS Height 64.25 in 2018-02-03 Weight 120.9 lbs 2018-02-03 Temperature 98.0 degrees Fahrenheit 2018-02-03 BMI 20.591 kg/m2 2018-02-03 Blood pressure systolic 116 mmHg 2018-02-03 Blood pressure diastolic 70 mmHg 2018-02-03 MEDICATIONS Medication Instructions Dosage Frequency Start Date End Date Duration Status 28-0.8 MG Orally daily 1 24h Sep, Not-Taking Ferrous Sulfate 325 (65 Fe) MG Orally Once a day 1 tablet 24h Sep, 30 day(s) Active Vitamin 27-0.8 MG Orally Once a day as directed 24h Sep, 30 days Active RESULTS No Results PROCEDURES Procedure Date Ordered Result Body Site LAB NOT BILLED BY [facility] February 03, 2018 URINE-NO MICRO February 03, 2018 INSTRUCTIONS MEDICATIONS ADMINISTERED No Known Medications MEDICAL (GENERAL) HISTORY Type Description Date Medical History depression Medical History anxiety Medical History PTSD Surgical History part of spleen removed 2001 Surgical History corneal transplant 2016 Hospitalization History surgery Hospitalization History suicidal ([place]) 2014
--- OUTSIDE RECORDS SUMMARY | 2018-05-21 05:28 | XMS REPORT ---
Author Author ANASTACIA BURTON [facility] Address [address] [place] [address] Care Team Providers Care Fire Observer Name Role Phone JOSEPHINEMAMADOUANASTACIA Unavailable PROBLEMS Type Condition ICD9-CM Code [id number] Code Onset Dates Condition Status SNOMED Code Problem Microcytic anemia D50.9 Active 957803411 Problem Fever, unspecified R50.9 Active 509006573 Problem Weight loss R63.4 Active 23521219 Problem Dysmenorrhea N94.6 Active 344855197 Problem Generalized anxiety disorder F41.1 Active 64855236 Problem Sciatica of right side M54.31 Active 73560695 Problem Spearman isoimmunization during in first trimester, single or unspecified fetus O36.1910 Active 165371773 Problem Anemia affecting in first trimester O99.011 Active 75295206 Problem Mild episode of recurrent major depressive disorder F33.0 Active 221641463 Problem Red blood cell antibody positive R76.8 Active 280059458 ALLERGIES No Information ENCOUNTERS Encounter Location Date Diagnosis [place] [address] [place] [address] 65417- 7829 Dec, [place] [address] [place] [address] 39483- 4532 Nov, Normal , first Z34.00 and 16 weeks gestation of Z3A.16 [place] [address] [place] [address] 53650- 3819 15 Oct, 2017 Normal , first Z34.00 ; Sciatica of right side M54.31 ; 12 weeks gestation of Z3A.12 and Spearman isoimmunization during in first trimester, single or unspecified fetus O36.1910 [place] [address] [place] [address] 94925- 6658 Sep, [facility] [address], [place] [address]- 2855 17 Sep, 2017 Normal , first Z34.00 ; Anemia affecting in first trimester O99.011 and 9 weeks gestation of Z3A.09 [facility] [address], [place] [address]- 2734 16 Sep, 2017 [facility] [address] [place] [id number] [place] [address] 71128- 3706 16 Sep, 2017 [facility] [address] [place] [id number], [place] [address]- 3376 10 Sep, 2017 8 weeks gestation of Z3A.08 ; Fever, unspecified R50.9 ; Missed menses N92.6 and Weight loss R63.4 [facility] [address], [place] [address]- 0409 Aug, [facility] [address] [place] [address] [id number] [place] [address] 62449- 0665 Aug, [facility] [address] [id number] [place] [address] 41279- 9501 Apr, Microcytic anemia D50.9 and Dysmenorrhea N94.6 [facility] [address], [place] [address]- 0875 Apr, [facility] [address], [place] [address]- 8350 Apr, [facility] [address], [place] [address]- 9524 Mar, Dysmenorrhea N94.6 [facility] [id number], [place] [address]- 1126 Mar, Dysmenorrhea N94.6 [facility] [address], [place] [address]- 4775 Jun, [facility] [id number] [place] [address] 67249155- 0531 Jun, [facility] [address] [facility] [id number] [place] [address]- 9356 Jul, [facility] [address] [place] [id number], [place] [address] 2546 Sep, [facility] [address] [facility] [id number], [place] [address]- 6864 Apr, [facility] [address] [place] [id number], [place] [address]- 9809 Oct, IMMUNIZATIONS No Known Immunizations SOCIAL HISTORY Never Assessed REASON FOR VISIT Requests return call PLAN OF CARE VITAL SIGNS MEDICATIONS Unknown Medications RESULTS No Results PROCEDURES No Known procedures INSTRUCTIONS MEDICATIONS ADMINISTERED No Known Medications MEDICAL (GENERAL) HISTORY Type Description Date Medical History depression Medical History anxiety Medical History PTSD Surgical History part of spleen removed 2001 Surgical History corneal transplant 2016 Hospitalization History surgery Hospitalization History suicidal ([place]) 2015
--- OUTSIDE RECORDS SUMMARY | 2018-05-21 05:28 | XMS REPORT ---
Author Author BERRY COOK [facility] Address [address] [place] [address] Care Team Providers Care Household Manager Name Role Phone BERRY COOK Unavailable PROBLEMS Type Condition ICD9-CM Code [id number] Code Onset Dates Condition Status SNOMED Code Problem Microcytic anemia D50.9 Active 252311163 Problem Fever, unspecified R50.9 Active 658660887 Problem Weight loss R63.4 Active 81305348 Problem Dysmenorrhea N94.6 Active 125254508 Problem Generalized anxiety disorder F41.1 Active 34653646 Problem Sciatica of right side M54.31 Active 94050278 Problem [place] isoimmunization during in first trimester, single or unspecified fetus O36.1910 Active 291651090 Problem Anemia affecting in first trimester O99.011 Active 40449079 Problem Mild episode of recurrent major depressive disorder F33.0 Active 221878678 Problem Red blood cell antibody positive R76.8 Active 030937051 ALLERGIES Substance Reaction Event Type Date Status Oxycodone HCl nausea Drug Allergy Sep, Active ENCOUNTERS Encounter Location Date Diagnosis [place] [address] [place] [id number] [address]- 9727 Mar, [place] [address] [place] [address] 64122- 3024 Mar, [place] [address] [place] [id number] [address]- 0174 Feb, Third trimester Z34.93 and Encounter for immunization Z23 [place] [address] [place] [address] 43259- 5063 January, [place] isoimmunization during in first trimester, single or unspecified fetus O36.1910 ; Diabetes mellitus screening Z13.1 ; 25 weeks gestation of Z3A.25 and care, first in second trimester Z34.02 [place] [address], [place] [address]- 1133 Dec, [place] [address] [place] [id number] [place] [address] 58920- 5857 Dec, [place] isoimmunization during in second trimester, single or unspecified fetus O36.1920 and 20 weeks gestation of Z3A.20 [place] [address] [place] [id number] [place] [address] 93745- 5215 15 Nov, 2017 Normal , first Z34.00 and 16 weeks gestation of Z3A.16 [place] [address] [place] [id number] [place] [address] 79684- 9149 15 Oct, 2017 Normal , first Z34.00 ; Sciatica of right side M54.31 ; 12 weeks gestation of Z3A.12 and Nancy isoimmunization during in first trimester, single or unspecified fetus O36.1910 [place] [address] [place] [address] 66049- 5708 Sep, [place] [address] [place] [id number] [place] [address] 80708- 3469 Sep, Normal , first Z34.00 ; Anemia affecting in first trimester O99.011 and 9 weeks gestation of Z3A.09 [place] [address] [place] [address] 76784- 7687 Sep, [place] [address] [place] [id number] [place] [address] 80729- 5032 Sep, [place] [address] [place] [id number] [place] [address] 84532- 7648 Sep, 8 weeks gestation of Z3A.08 ; Fever, unspecified R50.9 ; Missed menses N92.6 and Weight loss R63.4 [place] [address] [place] [id number] [place] [address] 29308- 6924 Aug, [place] [address], [place] [address]- 1508 Aug, [facility] [address] [place] [address] 01509- 3272 Apr, Microcytic anemia D50.9 and Dysmenorrhea N94.6 [facility] [address] [place] [address] 25700- 5261 Apr, [facility] [address] [place] [id number] [place] [address] 74722- 6089 Apr, [facility] [address] [place] [address] 88985- 7452 Mar, Dysmenorrhea N94.6 [facility] [address] [place] [address] [id number] [place] [address] 91220- 5713 Mar, Dysmenorrhea N94.6 [facility] [address] [place] [address] [id number] [place] [address] 85000- 0707 Jun, [facility] [address] [place] [address] 50167- 1723 Jun, [facility] [address] [place] [address] [id number] [place] [address] 69149- 4771 Jul, [facility] [address], [place] [address]- 7857 Sep, [facility] [address], [place] [address]- 3758 Apr, [facility] [address], [place] [address]- 2023 Oct, IMMUNIZATIONS No Known Immunizations SOCIAL HISTORY Never Assessed REASON FOR VISIT OB Flowsheet PLAN OF CARE VITAL SIGNS MEDICATIONS Medication Instructions Dosage Frequency Start Date End Date Duration Status Vitamin 27-0.8 MG Orally Once a day as directed 24h Sep, 30 days Not-Taking RESULTS No Results PROCEDURES No Known procedures INSTRUCTIONS MEDICATIONS ADMINISTERED No Known Medications MEDICAL (GENERAL) HISTORY Type Description Date Medical History depression Medical History anxiety Medical History PTSD Surgical History part of spleen removed 2001 Surgical History corneal transplant 2016 Hospitalization History surgery Hospitalization History suicidal ([place]) 2015
--- OUTSIDE RECORDS SUMMARY | 2018-05-21 05:28 | XMS REPORT ---
Author Author JOEY BERRY [facility] Address [address] [place] [address] Care Team Providers Care Textile Technologist Name Role Phone JOEY BERRY Unavailable PROBLEMS Type Condition ICD9-CM Code LZB19-YO Code Onset Dates Condition Status SNOMED Code Problem Microcytic anemia D50.9 Active 210205409 Problem Fever, unspecified R50.9 Active 784166998 Problem Weight loss R63.4 Active 16831301 Problem Dysmenorrhea N94.6 Active 864595012 Problem Generalized anxiety disorder F41.1 Active 50674669 Problem Sciatica of right side M54.31 Active 19031869 Problem [place] isoimmunization during in first trimester, single or unspecified fetus O36.1910 Active 804769355 Problem Anemia affecting in first trimester O99.011 Active 23296093 Problem Mild episode of recurrent major depressive disorder F33.0 Active 949370962 Problem Red blood cell antibody positive R76.8 Active 216595814 ALLERGIES No Information ENCOUNTERS Encounter Location Date Diagnosis [place] [address] [place] [address] [id number] [place] [address] 05316- 6732 Mar, [place] [address] [place] [address] [id number] [place] [address] 71939- 1528 Mar, [place] [address] [place] [id number] [place] [address] 44296- 3850 Feb, Third trimester Z34.93 and Encounter for immunization Z23 [place] [address] 25313- 8666 January, [place] isoimmunization during in first trimester, single or unspecified fetus O36.1910 ; Diabetes mellitus screening Z13.1 ; 25 weeks gestation of Z3A.25 and care, first in second trimester Z34.02 [place] [address], [place] [address]- 3550 Dec, [place] [address] [place] [address] [id number] [place] [address] 42743- 3640 Dec, [place] isoimmunization during in second trimester, single or unspecified fetus O36.1920 and 20 weeks gestation of Z3A.20 [place] [address] [id number] [place] [address] 04878- 7445 Nov, Normal , first Z34.00 and 16 weeks gestation of Z3A.16 [place] [address] [place] [address] [id number] [place] [address] 69837- 1132 15 Oct, 2017 Normal , first Z34.00 ; Sciatica of right side M54.31 ; 12 weeks gestation of Z3A.12 and [place] isoimmunization during in first trimester, single or unspecified fetus O36.1910 [place] [address] [place] [address] [id number] [place] [address] 50345- 6685 Sep, [place] [address] [place] [address] 85373- 8069 Sep, Normal , first Z34.00 ; Anemia affecting in first trimester O99.011 and 9 weeks gestation of Z3A.09 [place] [address], [place] [address]- 7617 Sep, [place] [address] [place] [address] [id number] [place] [address] 43425- 1816 Sep, [place] [address], [place] [address]- 3684 Sep, 8 weeks gestation of Z3A.08 ; Fever, unspecified R50.9 ; Missed menses N92.6 and Weight loss R63.4 [place] [address], [place] [address]- 7150 Aug, [place] [address] [place] [address] [id number] [place] [address] 92408- 5416 Aug, [facility] [address], [place] [address]- 0824 Apr, Microcytic anemia D50.9 and Dysmenorrhea N94.6 [facility] [address], [place] [address]- 2916 Apr, [facility] [address], [place] [address]- 5225 Apr, [facility] [address] 7787 Mar, Dysmenorrhea N94.6 [facility] [address] [place] [address] 49587- 5574 Mar, Dysmenorrhea N94.6 [facility] [address], [place] [address]- 6823 Jun, [facility] [address], [place] [address]- 3617 Jun, [facility] [address] [place] [address] 45714- 2852 Jul, [facility] [address], [place] [address]- 4993 Sep, [facility] [address], [place] [address]- 0822 Apr, [facility] [address] 9843 Oct, IMMUNIZATIONS No Known Immunizations SOCIAL HISTORY Never Assessed REASON FOR VISIT OB Referral PLAN OF CARE VITAL SIGNS MEDICATIONS Unknown Medications RESULTS No Results PROCEDURES No Known procedures INSTRUCTIONS MEDICATIONS ADMINISTERED No Known Medications MEDICAL (GENERAL) HISTORY Type Description Date Medical History depression Medical History anxiety Medical History PTSD Surgical History part of spleen removed 2001 Surgical History corneal transplant 2016 Hospitalization History surgery Hospitalization History suicidal ([place]) 2014
--- OUTSIDE RECORDS SUMMARY | 2018-05-21 05:28 | XMS REPORT ---
Author Author TUCKER HAYES [facility] Address [address] [place] [address] Care Team Providers Care Conveyor Feeder Offbearer Name Role Phone TUCKER HAYES Unavailable PROBLEMS Type Condition ICD9-CM Code [id number] Code Onset Dates Condition Status SNOMED Code Problem Microcytic anemia D50.9 Active 380661340 Problem Fever, unspecified R50.9 Active 977939702 Problem Weight loss R63.4 Active 35283489 Problem Dysmenorrhea N94.6 Active 612087685 Problem Generalized anxiety disorder F41.1 Active 44796204 Problem Sciatica of right side M54.31 Active 42630862 Problem Nancy isoimmunization during in first trimester, single or unspecified fetus O36.1910 Active 033827530 Problem Anemia affecting in first trimester O99.011 Active 94130921 Problem Mild episode of recurrent major depressive disorder F33.0 Active 437798453 Problem Red blood cell antibody positive R76.8 Active 257816662 ALLERGIES No Information ENCOUNTERS Encounter Location Date Diagnosis [place] [address] [place] [address] 82547- 0793 Feb, [place] [address] [place] [id number] [place] [address] 48583- 9853 January, [place] isoimmunization during in first trimester, single or unspecified fetus O36.1910 ; Diabetes mellitus screening Z13.1 ; 25 weeks gestation of Z3A.25 and care, first in second trimester Z34.02 [place] [address] [place] [id number] [place] [address] 06925- 5880 Dec, [place] [address] [place] [id number] [place] [address] 17942- 8233 Dec, Nancy isoimmunization during in second trimester, single or unspecified fetus O36.1920 and 20 weeks gestation of Z3A.20 [place] [address], [place] [address] 9[address] 15 Nov, 2017 Normal , first Z34.00 and 16 weeks gestation of Z3A.16 [place] [address] [place] [id number] [place] [address] 61033- 1208 15 Oct, 2017 Normal , first Z34.00 ; Sciatica of right side M54.31 ; 12 weeks gestation of Z3A.12 and [place] isoimmunization during in first trimester, single or unspecified fetus O36.1910 [place] [address] [place] [id number] [place] [address] 11047- 4226 Sep, [place] [address] [place] [id number] [place] [address] 18725- 6382 17 Sep, 2017 Normal , first Z34.00 ; Anemia affecting in first trimester O99.011 and 9 weeks gestation of Z3A.09 [place] [address] [place] [id number] [place] [address] 52861- 5590 16 Sep, 2017 [place] [address] [place] [id number] [place] [address] 04638- 3848 Sep, [place] [address] [place] [id number] [place] [address] 43562- 3193 Sep, 8 weeks gestation of Z3A.08 ; Fever, unspecified R50.9 ; Missed menses N92.6 and Weight loss R63.4 [place] [address] [place] [id number] [address] 5635 Aug, [place] [address] [place] [id number] [place] [address] 66383- 3237 Aug, [place] [address] [place] [id number] [place] [address] 50752- 3026 Apr, Microcytic anemia D50.9 and Dysmenorrhea N94.6 [place] [address] [place] [id number] [place] [address] 36233- 0039 Apr, [facility] [address], [place] [address] 3513 Apr, [facility] [address], [place] [address] 5216 Mar, Dysmenorrhea N94.6 [facility] [address], [place] [address]- 9966 Mar, Dysmenorrhea N94.6 [facility] [address], [place] [address] 7102 Jun, [facility] [address], [place] [address] 0709 Jun, [facility] [address], [place] [address]- 8222 Jul, [facility] [address], [place] [address]- 8009 Sep, [facility] [address], [place] [address]- 7879 Apr, [facility] [address] [place] [id number], [place] [address] 1484 Oct, IMMUNIZATIONS No Known Immunizations SOCIAL HISTORY Never Assessed REASON FOR VISIT triage - CBowcliftonR PLAN OF CARE VITAL SIGNS MEDICATIONS Unknown Medications RESULTS No Results PROCEDURES No Known procedures INSTRUCTIONS MEDICATIONS ADMINISTERED No Known Medications MEDICAL (GENERAL) HISTORY Type Description Date Medical History depression Medical History anxiety Medical History PTSD Surgical History part of spleen removed 2001 Surgical History corneal transplant 2016 Hospitalization History surgery Hospitalization History suicidal ([place]) 2014
--- OUTSIDE RECORDS SUMMARY | 2018-05-21 05:28 | XMS REPORT ---
Author Author JOEY BERRY [facility] Address [address] [place] [address] Care Team Providers Care Ditch Worker Name Role Phone BERRY COOK Unavailable PROBLEMS Type Condition ICD9-CM Code GMP28-SD Code Onset Dates Condition Status SNOMED Code Problem Microcytic anemia D50.9 Active 568084231 Problem Fever, unspecified R50.9 Active 257492577 Problem Weight loss R63.4 Active 91841875 Problem Dysmenorrhea N94.6 Active 406549948 Problem Generalized anxiety disorder F41.1 Active 15219399 Problem Sciatica of right side M54.31 Active 34095745 Problem [place] isoimmunization during in first trimester, single or unspecified fetus O36.1910 Active 251114553 Problem Anemia affecting in first trimester O99.011 Active 94269280 Problem Mild episode of recurrent major depressive disorder F33.0 Active 379644539 Problem Red blood cell antibody positive R76.8 Active 412295966 ALLERGIES Substance Reaction Event Type Date Status Oxycodone HCl nausea Drug Allergy Oct, Active ENCOUNTERS Encounter Location Date Diagnosis [place] [address] [place] [id number] [place] [address] 64523- 5394 Mar, [place] [address] [place] [id number] [place] [address] 08886- 4972 Mar, 32 weeks gestation of Z3A.32 and care, first in third trimester Z34.03 [place] [address] [place] [id number] [place] [address] 47883- 3042 Feb, Third trimester Z34.93 ; Encounter for immunization Z23 and 30 weeks gestation of Z3A.30 [place] [address] [place] [address] 92485- 1096 January, [place] isoimmunization during in first trimester, single or unspecified fetus O36.1910 ; Diabetes mellitus screening Z13.1 ; 25 weeks gestation of Z3A.25 and care, first in second trimester Z34.02 [place] [address] [place] [address] [place] [address] 67006- 3253 Dec, [place] [address] [place] [address] [place] [address] 82620- 6337 Dec, [place] isoimmunization during in second trimester, single or unspecified fetus O36.1920 and 20 weeks gestation of Z3A.20 [place] [address] [place] [address] [place] [address] 57258- 2546 Nov, Normal , first Z34.00 and 16 weeks gestation of Z3A.16 [place] [address] [place] [address] [place] [address] 51474- 3049 15 Oct, 2017 Normal , first Z34.00 ; Sciatica of right side M54.31 ; 12 weeks gestation of Z3A.12 and [place] isoimmunization during in first trimester, single or unspecified fetus O36.1910 [place] [address] [place] [address] [place] [address] 99347- 3959 Sep, [place] [address] [place] [address] 72622- 3199 Sep, Normal , first Z34.00 ; Anemia affecting in first trimester O99.011 and 9 weeks gestation of Z3A.09 [place] [address] [place] [address] 45343- 9628 Sep, [place] [address] [place] [id number] [place] [address] 79452- 9275 Sep, [place] [address] [place] [address] [place] [address] 74903- 3111 Sep, 8 weeks gestation of Z3A.08 ; Fever, unspecified R50.9 ; Missed menses N92.6 and Weight loss R63.4 [place] [address], [place] [address]- 2188 Aug, [facility] [address], [place] [address]- 1285 Aug, [facility] [address], [place] [address]- 0170 Apr, Microcytic anemia D50.9 and Dysmenorrhea N94.6 [facility] [address], [place] [address]- 2499 Apr, [facility] [address] [place] [address] 96798- 0692 Apr, [facility] [address] [place] [address] 05678- 0886 Mar, Dysmenorrhea N94.6 [facility] [address] [place] [id number] [place] [address] 53110- 1089 Mar, Dysmenorrhea N94.6 [facility] [address], [place] [address]- 3338 Jun, [facility] [address], [place] [address]- 7938 Jun, [facility] [address], [place] [address]- 3767 Jul, [facility] [address], [place] [address]- 1873 Sep, [facility] [address], [place] [address]- 9256 Apr, [facility] [address], [place] [address]- 6255 Oct, IMMUNIZATIONS No Known Immunizations SOCIAL HISTORY Never Assessed REASON FOR VISIT OB f/u-4 wk---tcuppettRN PLAN OF CARE Activity Details Follow Up 4 Weeks, 4 Weeks Reason: VITAL SIGNS Height 64.25 in 2017-11-06 Weight 107.0 lbs 2017-11-06 Temperature 98.0 degrees Fahrenheit 2017-11-06 Heart Rate 72 bpm 2017-11-06 Respiratory Rate 16 2017-11-06 BMI 18.224 kg/m2 2017-11-06 Blood pressure systolic 116 mmHg 2017-11-06 Blood pressure diastolic 70 mmHg 2017-11-06 MEDICATIONS Medication Instructions Dosage Frequency Start Date End Date Duration Status 28-0.8 MG Orally daily 1 24h Sep, Active Vitamin 27-0.8 MG Orally Once a day as directed 24h Sep, 30 days Not-Taking Ferrous Sulfate 325 (65 Fe) MG Orally Once a day 1 tablet 24h Sep, 30 day(s) Not-Taking RESULTS Name Result Date Reference Range UA OB DIP (IN HOUSE) 2017-11-06 Glucose negative Protein negative PROCEDURES Procedure Date Ordered Result Body Site URINE-NO MICRO Nov 06, 2017 INSTRUCTIONS MEDICATIONS ADMINISTERED No Known Medications MEDICAL (GENERAL) HISTORY Type Description Date Medical History depression Medical History anxiety Medical History PTSD Surgical History part of spleen removed 2001 Surgical History corneal transplant 2016 Hospitalization History surgery Hospitalization History suicidal ([place]) 2014
--- OUTSIDE RECORDS SUMMARY | 2018-05-21 05:28 | XMS REPORT ---
Author Author KYLIE GOODWIN [facility] Address [address] [place] [address] Care Team Providers Care Toll Line Repairer Name Role Phone KYLIE GOODWIN Unavailable PROBLEMS Type Condition ICD9-CM Code [id number] Code Onset Dates Condition Status SNOMED Code Problem Microcytic anemia D50.9 Active 528093150 Problem Fever, unspecified R50.9 Active 203961533 Problem Weight loss R63.4 Active 01259387 Problem Dysmenorrhea N94.6 Active 888825897 Problem Generalized anxiety disorder F41.1 Active 06708369 Problem Sciatica of right side M54.31 Active 86247899 Problem [place] isoimmunization during in first trimester, single or unspecified fetus O36.1910 Active 214331070 Problem Anemia affecting in first trimester O99.011 Active 91289495 Problem Mild episode of recurrent major depressive disorder F33.0 Active 911974460 Problem Red blood cell antibody positive R76.8 Active 243718201 ALLERGIES No Information ENCOUNTERS Encounter Location Date Diagnosis [place] [address] [place] [address] 11823- 8565 Feb, [place] [address] [place] [id number] [place] [address] 78672- 8086 January, [place] isoimmunization during in first trimester, single or unspecified fetus O36.1910 ; Diabetes mellitus screening Z13.1 ; 25 weeks gestation of Z3A.25 and care, first in second trimester Z34.02 [place] [address] [place] [address] 55049- 0417 Dec, [place] [address] [place] [id number] [place] [address] 90688- 8268 Dec, [place] isoimmunization during in second trimester, single or unspecified fetus O36.1920 and 20 weeks gestation of Z3A.20 [place] [address] [place] [id number] [place] [address] 05383- 0131 15 Nov, 2017 Normal , first Z34.00 and 16 weeks gestation of Z3A.16 [place] [address] [place] [id number] [place] [address] 83359- 5856 15 Oct, 2017 Normal , first Z34.00 ; Sciatica of right side M54.31 ; 12 weeks gestation of Z3A.12 and [place] isoimmunization during in first trimester, single or unspecified fetus O36.1910 [place] [address] [place] [id number] [place] [address] 80689- 3539 Sep, [place] [address] [place] [id number] [place] [address] 05979- 5374 Sep, Normal , first Z34.00 ; Anemia affecting in first trimester O99.011 and 9 weeks gestation of Z3A.09 [place] [address] [place] [id number] [place] [address] 24086- 4823 Sep, [place] [address] [place] [id number] [place] [address] 75268- 2051 Sep, [place] [address] [place] [id number] [place] [address] 75570- 8574 Sep, 8 weeks gestation of Z3A.08 ; Fever, unspecified R50.9 ; Missed menses N92.6 and Weight loss R63.4 [place] [address] [place] [address] 32925- 2280 Aug, [place] [address] [place] [id number] [place] [address] 95800- 2074 Aug, [place] [address] [place] [id number] [place] [address] 57173- 4498 Apr, Microcytic anemia D50.9 and Dysmenorrhea N94.6 [place] [address] [place] [id number] [place] [address] 11417- 9479 Apr, [facility] [place] [address] [address]- 6917 Apr, [facility] [place] [address] [address]- 1605 Mar, Dysmenorrhea N94.6 [facility] [place] [address] [address]- 2392 Mar, Dysmenorrhea N94.6 [facility] [place] [address] [address]3 Jun, [facility] [place] [address] [place] [id number] [place] [address] 933585- 2792 Jun, [facility] [place] [address] [address]- 3014 Jul, [facility] [place] [address] [address]- 0745 Sep, [facility] [place] [address] [address]- 2216 Apr, [facility] [place] [address] [address]- 1227 Oct, IMMUNIZATIONS No Known Immunizations SOCIAL HISTORY [...] 2016 Hospitalization History surgery Hospitalization History suicidal ([place]) 2014
--- OUTSIDE RECORDS SUMMARY | 2018-05-21 05:28 | XMS REPORT ---
Author Author JASON MARS Organization [facility] Address [address] [place] [address] Care Team Providers Care Wind Operations Manager Name Role Phone JASON MARS Unavailable PROBLEMS Type Condition ICD9-CM Code PFO94-KF Code Onset Dates Condition Status SNOMED Code Problem Microcytic anemia D50.9 Active 619369699 Problem Fever, unspecified R50.9 Active 761801825 Problem Weight loss R63.4 Active 64429672 Problem Dysmenorrhea N94.6 Active 963375880 Problem Generalized anxiety disorder F41.1 Active 92724600 Problem Sciatica of right side M54.31 Active 38279513 Problem [place] isoimmunization during in first trimester, single or unspecified fetus O36.1910 Active 991986530 Problem Anemia affecting in first trimester O99.011 Active 99787128 Problem Mild episode of recurrent major depressive disorder F33.0 Active 615983993 Problem Red blood cell antibody positive R76.8 Active 837139905 ALLERGIES No Information ENCOUNTERS Encounter Location Date Diagnosis [place] [address] [place] [address] 59725- 1578 Mar, [place] [address] [place] [address] 09847- 5580 Mar, [place] [address] [place] [id number] [place] [address] 76132- 8582 Feb, Third trimester Z34.93 and Encounter for immunization Z23 [place] [address] 72513- 5423 January, [place] isoimmunization during in first trimester, single or unspecified fetus O36.1910 ; Diabetes mellitus screening Z13.1 ; 25 weeks gestation of Z3A.25 and care, first in second trimester Z34.02 [place] [address], [place] [address]- 0788 Dec, [place] [address] [place] [id number] [place] [address] 43207- 1115 Dec, [place] isoimmunization during in second trimester, single or unspecified fetus O36.1920 and 20 weeks gestation of Z3A.20 [place] [address] [place] [id number] [place] [address] 48907- 2025 Nov, Normal , first Z34.00 and 16 weeks gestation of Z3A.16 [place] [address] [place] [id number] [place] [address] 86386- 4620 15 Oct, 2017 Normal , first Z34.00 ; Sciatica of right side M54.31 ; 12 weeks gestation of Z3A.12 and [place] isoimmunization during in first trimester, single or unspecified fetus O36.1910 [place] [address] [place] [id number] [place] [address] 74879- 1254 Sep, [place] [address] [place] [id number] [place] [address] 66119- 7184 Sep, Normal , first Z34.00 ; Anemia affecting in first trimester O99.011 and 9 weeks gestation of Z3A.09 [place] [address], [place] [address]- 6481 Sep, [place] [address] [place] [id number] [place] [address] 96103- 3496 Sep, [place] [address] [place] [address] 49211- 6747 Sep, 8 weeks gestation of Z3A.08 ; Fever, unspecified R50.9 ; Missed menses N92.6 and Weight loss R63.4 [place] [address], [place] [address]- 7470 Aug, [place] [address] [place] [id number] [place] [address] 17789- 6378 Aug, [facility] [address] [place] [id number] 4011 Apr, Microcytic anemia D50.9 and Dysmenorrhea N94.6 [facility] [address], [place] [address]- 6526 Apr, [facility] [address], [place] [address]- 4752 Apr, [facility] [address] [place] [address], [place] [address]- 8085 Mar, Dysmenorrhea N94.6 [facility] [address] [place] [id number] [place] [address] 73493- 4585 Mar, Dysmenorrhea N94.6 [facility] [address], [place] [address]- 4708 Jun, [facility] [address], [place] [address]- 4754 Jun, [facility] [address], [place] [address]- 8070 Jul, [facility] [address], [place] [address]- 9478 Sep, [facility] [address], [place] [address]- 8775 Apr, [facility] [address], [place] [address]- 1582 Oct, IMMUNIZATIONS No Known Immunizations SOCIAL HISTORY Never Assessed REASON FOR VISIT Waiting for call back PLAN OF CARE VITAL SIGNS MEDICATIONS Unknown Medications RESULTS No Results PROCEDURES No Known procedures INSTRUCTIONS MEDICATIONS ADMINISTERED No Known Medications MEDICAL (GENERAL) HISTORY Type Description Date Medical History depression Medical History anxiety Medical History PTSD Surgical History part of spleen removed 2001 Surgical History corneal transplant 2016 Hospitalization History surgery Hospitalization History suicidal ([place]) 2014
--- OUTSIDE RECORDS SUMMARY | 2018-05-21 05:28 | XMS REPORT ---
Author Author ANASTACIA BURTON Organization [facility] Address [address] [place] [address] Care Team Providers Care Crtt Name Role Phone BURTONMAMADOU PriceELE Unavailable PROBLEMS Type Condition ICD9-CM Code JLA36-GR Code Onset Dates Condition Status SNOMED Code Problem Microcytic anemia D50.9 Active 381649254 Problem Fever, unspecified R50.9 Active 500627912 Problem Weight loss R63.4 Active 37708635 Problem Dysmenorrhea N94.6 Active 132686855 Problem Generalized anxiety disorder F41.1 Active 57971251 Problem Sciatica of right side M54.31 Active 71844529 Problem [place] isoimmunization during in first trimester, single or unspecified fetus O36.1910 Active 814989712 Problem Anemia affecting in first trimester O99.011 Active 78044143 Problem Mild episode of recurrent major depressive disorder F33.0 Active 269457879 Problem Red blood cell antibody positive R76.8 Active 870460361 ALLERGIES Substance Reaction Event Type Date Status Oxycodone HCl nausea Drug Allergy Apr, Active ENCOUNTERS Encounter Location Date Diagnosis [place] [id number] [place] [address]449- 6791 Dec, [facility] [address] [place] [address] 53535- 5809 Nov, Normal , first Z34.00 and 16 weeks gestation of Z3A.16 [place] [id number] [place] [address] 61902- 7583 Oct, Normal , first Z34.00 ; Sciatica of right side M54.31 ; 12 weeks gestation of Z3A.12 and Nancy isoimmunization during in first trimester, single or unspecified fetus O36.1910 [facility] [id number] [place] [address] 74310- 6663 Sep, [facility] [address] [address] Sep, Normal , first Z34.00 ; Anemia affecting in first trimester O99.011 and 9 weeks gestation of Z3A.09 [facility] [address] [address] 16 Sep, 2017 [facility] [id number] [place] [address] 73468- 8763 16 Sep, 2017 [facility] [address] [place] [address] 09968- 8211 10 Sep, 2017 8 weeks gestation of Z3A.08 ; Fever, unspecified R50.9 ; Missed menses N92.6 and Weight loss R63.4 [facility] [id number] [place] [address] 20029- 7051 Aug, [facility] [id number] [address] Aug, [facility] [id number] [place] [address] 38826- 2197 Apr, Microcytic anemia D50.9 and Dysmenorrhea N94.6 [facility] [address] [address] Apr, [facility] [address] [address] Apr, [facility] [address] [address] 150[address] Mar, Dysmenorrhea N94.6 [facility] [id number] [place] [address] 27689- 8604 Mar, Dysmenorrhea N94.6 [facility] [address] [address] 8[address] Jun, [facility] [address] [facility] [id number] [address] 25[address] Jun, [facility] [id number] [address] 2546 Jul, [facility] [id number] [address] Sep, [facility] [id number] [address] 2546 Apr, [facility] [address] [facility] [id number] [address] Oct, IMMUNIZATIONS No Known Immunizations SOCIAL HISTORY Never Assessed REASON FOR VISIT [facility] updated. [place] [facility]NER[facility] PLAN OF CARE VITAL SIGNS MEDICATIONS Medication Instructions Dosage Frequency Start Date End Date Duration Status Prozac 20 MG Orally Once a day 1 capsule in the morning 24h Active RESULTS No Results PROCEDURES No Known procedures INSTRUCTIONS MEDICATIONS ADMINISTERED No Known Medications MEDICAL (GENERAL) HISTORY Type Description Date Medical History depression Medical History anxiety Medical History PTSD Surgical History part of spleen removed 2001 Surgical History corneal transplant 2016 Hospitalization History surgery Hospitalization History suicidal ([place]) 2014
--- OUTSIDE RECORDS SUMMARY | 2018-05-21 05:28 | XMS REPORT ---
Author Author KYLIE GOODWIN [facility] Address [address] [place] [address] Care Team Providers Care Window Decorator Name Role Phone KYLIE GOODWIN Unavailable PROBLEMS Type Condition ICD9-CM Code RGZ28-[id number] Code Onset Dates Condition Status SNOMED Code Problem Microcytic anemia D50.9 Active 741541554 Problem Fever, unspecified R50.9 Active 070554866 Problem Weight loss R63.4 Active 96600836 Problem Dysmenorrhea N94.6 Active 308401255 Problem Generalized anxiety disorder F41.1 Active 94932010 Problem Sciatica of right side M54.31 Active 82774919 Problem [place] isoimmunization during in first trimester, single or unspecified fetus O36.1910 Active 714298455 Problem Anemia affecting in first trimester O99.011 Active 43078962 Problem Mild episode of recurrent major depressive disorder F33.0 Active 831957294 Problem Red blood cell antibody positive R76.8 Active 174818550 ALLERGIES Substance Reaction Event Type Date Status Oxycodone HCl nausea Drug Allergy Sep, Active ENCOUNTERS Encounter Location Date Diagnosis [place] [id number] [address] Mar, [place] [address] [place] [address] 30856- 8380 Mar, [place] [id number] [place] [address] 52668- 8876 Feb, Third trimester Z34.93 and Encounter for immunization Z23 [place] [address] [place] [address] 46223- 8394 January, [place] isoimmunization during in first trimester, single or unspecified fetus O36.1910 ; Diabetes mellitus screening Z13.1 ; 25 weeks gestation of Z3A.25 and care, first in second trimester Z34.02 [place] [address] [address] Dec, [place] [id number] [place] [address]- [address] Dec, Nancy isoimmunization during in second trimester, single or unspecified fetus O36.1920 and 20 weeks gestation of Z3A.20 [place] [id number] [place] [address] 71815- 2058 15 Nov, 2017 Normal , first Z34.00 and 16 weeks gestation of Z3A.16 [place] [address] [place] [address] 99634- 0267 15 Oct, 2017 Normal , first Z34.00 ; Sciatica of right side M54.31 ; 12 weeks gestation of Z3A.12 and [place] isoimmunization during in first trimester, single or unspecified fetus O36.1910 [place] [address] [place] [address] 12207- 5422 Sep, [place] [id number] [place] [address] 92778- 6299 Sep, Normal , first Z34.00 ; Anemia affecting in first trimester O99.011 and 9 weeks gestation of Z3A.09 [place] [id number] [place] [address] 11893- 6378 Sep, [place] [id number] [place] [address] 46477- 3589 Sep, [place] [id number] [place] [address] 64322- 6482 Sep, 8 weeks gestation of Z3A.08 ; Fever, unspecified R50.9 ; Missed menses N92.6 and Weight loss R63.4 [place] [id number] [place] [address] 19869- 8230 Aug, [place] [address], [place] [address] 6658 Aug, [facility] [address], [place] [address] 4923 Apr, Microcytic anemia D50.9 and Dysmenorrhea N94.6 [facility] [address], [place] [address]- 5014 Apr, [facility] [address], [place] [address]- 7758 Apr, [facility] [address], [place] [address]- 2231 Mar, Dysmenorrhea N94.6 [facility] [address], [place] [address]- 1699 Mar, Dysmenorrhea N94.6 [facility] [id number] [address]- 3898 Jun, [facility] [address] [address] Jun, [facility] [address], [place] [address]- 1821 Jul, [facility] [address], [place] [address]- 7079 Sep, [facility] [address], [place] [address]- 1609 Apr, [facility] [id number], [place] [address]- 9115 Oct, IMMUNIZATIONS No Known Immunizations SOCIAL HISTORY Never Assessed REASON FOR VISIT Establish Care- concerns about weight loss, reports that she weighed 120lbs when she moved her around a year ago, reports a good appetite-AHarrymanRN, symptoms, tender breast, nausea daily with vomiting, missed last months period PLAN OF CARE Activity Details 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 Reason: VITAL SIGNS Height 64.25 in 2017-10-01 Weight 97.5 lbs 2017-10-01 Temperature 99.9 degrees Fahrenheit 2017-10-01 Heart Rate 88 bpm 2017-10-01 Respiratory Rate 18 2017-10-01 BMI 16.60 kg/m2 2017-10-01 Blood pressure systolic 102 mmHg 2017-10-01 Blood pressure diastolic 64 mmHg 2017-10-01 MEDICATIONS Medication Instructions Dosage Frequency Start Date End Date Duration Status Vitamin 27-0.8 MG Orally Once a day as directed 24h Sep, 30 days Active RESULTS No Results PROCEDURES Procedure Date Ordered Result Body Site INFLUENZA ASSAY W/OPTIC Oct 01, 2017 URINE TEST Oct 01, 2017 VENIPUNCT, ROUTINE* Oct 01, 2017 COMPLETE CBC W/AUTO DIFF WBC Oct 01, 2017 ASSAY THYROID STIM HORMONE Oct 01, 2017 COMPREHEN METABOLIC PANEL Oct 01, 2017 INSTRUCTIONS MEDICATIONS ADMINISTERED No Known Medications MEDICAL (GENERAL) HISTORY Type Description Date Medical History depression Medical History anxiety Medical History PTSD Surgical History part of spleen removed 2001 Surgical History corneal transplant 2016 Hospitalization History surgery Hospitalization History suicidal ([place]) 2014
--- OUTSIDE RECORDS SUMMARY | 2018-05-21 05:29 | XMS REPORT ---
Author Author ANASTACIA BURTON Organization [facility] Address [address] [place] [address] Care Team Providers Care Director Emergency Name Role Phone BURTONMAMADOU PriceELE Unavailable PROBLEMS Type Condition ICD9-CM Code XOU27-RV Code Onset Dates Condition Status SNOMED Code Problem Microcytic anemia D50.9 Active 544389309 Problem Fever, unspecified R50.9 Active 258089976 Problem Weight loss R63.4 Active 53479854 Problem Dysmenorrhea N94.6 Active 072681994 Problem Generalized anxiety disorder F41.1 Active 39231795 Problem Sciatica of right side M54.31 Active 44268164 Problem [place] isoimmunization during in first trimester, single or unspecified fetus O36.1910 Active 383326102 Problem Anemia affecting in first trimester O99.011 Active 11054380 Problem Mild episode of recurrent major depressive disorder F33.0 Active 265359912 Problem Red blood cell antibody positive R76.8 Active 586806182 ALLERGIES No Known Allergies ENCOUNTERS Encounter Location Date Diagnosis [place] [address] [place] [address] 77610- 4317 Dec, [place] [address] [place] [address] 91312- 8398 Nov, Normal , first Z34.00 and 16 weeks gestation of Z3A.16 [place] [address] [place] [address] 88716- 6918 15 Oct, 2017 Normal , first Z34.00 ; Sciatica of right side M54.31 ; 12 weeks gestation of Z3A.12 and [place] isoimmunization during in first trimester, single or unspecified fetus O36.1910 [place] [address] [place] [address] 95496- 1310 Sep, [facility] [address] [address]- 7953 Sep, Normal , first Z34.00 ; Anemia affecting in first trimester O99.011 and 9 weeks gestation of Z3A.09 [facility] [address] [address]- 1277 16 Sep, 2017 [facility] [id number] [place] [address] 45931- 4805 16 Sep, 2017 [facility] [id number] [place] [address] 50374- 9126 10 Sep, 2017 8 weeks gestation of Z3A.08 ; Fever, unspecified R50.9 ; Missed menses N92.6 and Weight loss R63.4 [place] [address] [address]- 3739 Aug, [facility] [id number] [place] [address] 22507- 0963 Aug, [facility] [id number] [place] [address] 84001- 7536 Apr, Microcytic anemia D50.9 and Dysmenorrhea N94.6 [facility] [address] [address]- 1703 Apr, [facility] [address] [address]- 0133 Apr, [facility] [address] [address]- 4475 Mar, Dysmenorrhea N94.6 [facility] [id number] [place] [address] 68094- 3578 Mar, Dysmenorrhea N94.6 [facility] [address] [address]- 1735 Jun, [facility] [id number] [place] [address] 96215- 3916 Jun, [facility] [address] [facility] [id number] [address]- 2826 Jul, [facility] [address] [facility] [id number] [address] 2546 Sep, [facility] [address] [facility] [id number] [address]- 2546 Apr, [facility] [address] [facility] [id number] [address]- 8336 Oct, IMMUNIZATIONS No Known Immunizations SOCIAL HISTORY Never Assessed REASON FOR VISIT Heavy Periods, pt. is stating she is having cramps, running fever, and feels like she cant move since she started period., pt. states symptoms have progressviely gotten worse---[place],CCMA PLAN OF CARE Activity Details Follow Up 4 Weeks Reason:needs to est care VITAL SIGNS Height 64.25 in 2017-03-27 Weight 111.2 lbs 2017-03-27 Temperature 98.1 degrees Fahrenheit 2017-03-27 Heart Rate 64 bpm 2017-03-27 Respiratory Rate 16 2017-03-27 BMI 18.94 kg/m2 2017-03-27 Blood pressure systolic 116 mmHg 2017-03-27 Blood pressure diastolic 80 mmHg 2017-03-27 MEDICATIONS Medication Instructions Dosage Frequency Start Date End Date Duration Status Prozac 20 MG Orally Once a day 1 capsule in the morning 24h Active Ibuprofen 800 MG Orally Three times a day 1 tablet with food or milk 8h Mar, Apr, 30 day(s) Active RESULTS Name Result Date Reference Range THYROID ANALYZER 2017-03-27 TSH 0.395 0.450-4.500 T4,Free (Direct) 1.11 0.82-1.77 Triiodothyronine, Free, Serum 3.5 2.0-4.4 Interpretive Comment A1C 2017-03-27 Hemoglobin A1c 5.4 4.8-5.6 CBC 2017-03-27 WBC 3.2 3.4-10.8 RBC 4.88 3.77-5.28 Hemoglobin 9.3 11.1-15.9 Hematocrit 32.5 34.0-46.6 MCV 67 79-97 MCH 19.1 26.6-33.0 MCHC 28.6 31.5-35.7 RDW 16.7 12.3-15.4 Platelets 177 150-379 Neutrophils 42 Lymphs 44 Monocytes 7 Eos 6 Basos 1 Neutrophils (Absolute) 1.4 1.4-7.0 Lymphs (Absolute) 1.4 0.7-3.1 Monocytes(Absolute) 0.2 0.1-0.9 Eos (Absolute) 0.2 0.0-0.4 Baso (Absolute) 0.0 0.0-0.2 Immature Granulocytes 0 Immature Grans (Abs) 0.0 0.0-0.1 LIPID PANEL 2017-03-27 Cholesterol, Total 110 100-169 Triglycerides 38 0-89 HDL Cholesterol 62 >39 VLDL Cholesterol Michael 8 5-40 LDL Cholesterol Calc 40 0-109 CMP 2017-03-27 Glucose, Serum 89 65-99 BUN 13 6-20 Creatinine, Serum 0.65 0.57-1.00 eGFR If NonAfricn Am 129 >59 eGFR If Africn Am 149 >59 BUN/Creatinine Ratio 20 9-23 Sodium, Serum 139 134-144 Potassium, Serum 4.1 3.5-5.2 Chloride, Serum 103 96-106 Carbon Dioxide, Total 19 18-29 Calcium, Serum 8.7 8.7-10.2 Protein, Total, Serum 6.9 6.0-8.5 Albumin, Serum 4.0 3.5-5.5 Globulin, Total 2.9 1.5-4.5 A/G Ratio 1.4 1.2-2.2 Bilirubin, Total 0.5 0.0-1.2 Alkaline Phosphatase, S 44 39-117 AST (SGOT) 13 0-40 ALT (SGPT) 4 0-32 PROCEDURES Procedure Date Ordered Result Body Site ASSAY THYROID STIM HORMONE March 27, 2017 COMPLETE CBC W/AUTO DIFF WBC March 27, 2017 VENIPUNCT, ROUTINE* March 27, 2017 LIPID PANEL March 27, 2017 COMPREHEN METABOLIC PANEL March 27, 2017 GLYCATED HEMOGLOBIN TEST March 27, 2017 INSTRUCTIONS MEDICATIONS ADMINISTERED No Known Medications MEDICAL (GENERAL) HISTORY Type Description Date Medical History depression Medical History anxiety Medical History PTSD Surgical History part of spleen removed 2001 Surgical History corneal transplant 2016 Hospitalization History surgery Hospitalization History suicidal ([place]) 2014
[2018-05-21] MEDS: OXYTOCIN/NORMAL SALINE 500 ML IV SCH ×3 (06:25→12:30)
[2018-05-21] MEDS ORDERED: SUFENTA 0.6MCG/ML BUPIVA 0.125 100 ML ONE (06:32)
[2018-05-21] MEDS ORDERED: fentaNYL INJECTION 100 MCG/2 ML AMP ONE (08:04)
--- NOTE | 2018-05-21 08:16 | Labor Progress Note ---
Labor Progress Note Labor Progress Note Date Seen by Provider: May 21, 2018 Time Seen by Provider: 08:00 Subjective: Pt just got epidural, is starting to feel better. Objective: Cervical exam: /- Consistency: soft Position: anterior Presentation: vertex heart tones: 133 beats per minute, moderate variability Tocometer: 5 ctx/10 minutes AROM done with meconium stained fluid noted Assessment/Plan: María Elena Rutherford is a 22 /Para 1 / 0,Gestational Age (wks)40 here for IOL for post-dates. BP elevated. Suspect BP elevation due to pain, but if not improved after epidural, will treat if above 160/110. CEFM/TOCO Continue pitocin Anesthesia: epidural Anticipate vaginal delivery. Vitals - Labs Vital Signs - I&O Vital Signs Date Time Temp Pulse Resp B/P (MAP) Pulse Ox O2 Delivery O2 Flow Rate FiO2 05/21/18 07:00 73 18 136/85 (102) Room Air 05/21/18 06:45 81 18 125/110 (115) Room Air 05/21/18 06:30 75 18 125/99 (108) Room Air 05/21/18 04:25 97.6 84 18 134/84 (101) Room Air 05/20/18 23:47 97.9 73 18 129/81 (97) Room Air 05/20/18 19:35 97.9 95 18 127/81 (96) Room Air I & O 05/21/18 07:00 Intake Total 2670 ml Balance 2670 ml Labs Laboratory Tests 05/20/18 19:50: White Blood Count 8.5, Red Blood Count 4.59, Hemoglobin 12.5, Hematocrit 37, Mean Corpuscular Volume 80, Mean Corpuscular Hemoglobin 27, Mean Corpuscular Hemoglobin Concent 34, Red Cell Distribution Width 16.9H, Platelet Count 140, Mean Platelet Volume , Neutrophils (%) (Auto) 69, Lymphocytes (%) (Auto) 18, Monocytes (%) (Auto) 9, Eosinophils (%) (Auto) 4, Basophils (%) (Auto) 0, Neutrophils # (Auto) 5.9, Lymphocytes # (Auto) 1.6, Monocytes # (Auto) 0.7, Eosinophils # (Auto) 0.3, Basophils # (Auto) 0.0 BERRY COOK MD May 21, 2018 8:16 am
[2018-05-21] MEDS ORDERED: LACTATED RINGERS 1,000 ML IV ONE ×2 (10:07)
[2018-05-21] MEDS ORDERED: CATHETER FLUSH 10 ML SYR IV PRN ×2 (10:15)
[2018-05-21] MEDS ORDERED: NALOXONE 0.4 MG/ML 1 ML (NARCAN) VIAL IV PRN ×2 (10:15)
[2018-05-21] MEDS ORDERED: EPIDURAL (SUFENTA 0.6MCG/ML BUPIVA 0.125%) 100 ML BAG EPI SCH ×2 (10:15)
[2018-05-21] MEDS ORDERED: MINERAL OIL CONCENTRATE 99.9% 15 ML UDC ONE (11:07)
[2018-05-21] MEDS ORDERED: LIDOCAINE/EPI 2% 1:200,00 (XYLOCAINE) 10 ML VIAL ONE (11:07)
--- NOTE | 2018-05-21 13:27 | OB Labor & Delivery Record ---
Vag Delivery Note Vag Delivery Note Date of Delivery: 05/21/18 Preoperative Diagnosis: María Elena Rutherford is a 22 /Para 1 / 0, Gestational Age (wks)40with 2 days Postoperative Diagnosis: Same Surgeon: BERRY COOK Anesthesia: epidural Delivery Type: Spontaneous vaginal delivery Findings: Viable female , apgars 8/9, weight 7#8 Lacerations: bilateral inner labial, right perineal first degree Intact placenta with 3 vessel cord. No nuchal cord, body cord or shoulder dystocia Cytotec 800 mcg placed for hemorrhage prophylaxis Estimated Blood Loss: 400 ml Complications: None Condition: Stable Description of Procedure: The patient is a G1 now P1 who presented for IOL for postdates. She was admitted and informed consent was obtained. Her labor course was unremarkable. She progressed to complete dilatation and began to push. She was then set up for delivery. The infant's head was delivered atraumatically in the SUNITA position. The shoulders and remainder of the infant's body were then delivered without difficulty. Upon delivery, the infant was vigorous and placed on maternal abdomen. The cord was doubly clamped and cut and the was handed off to the pediatric staff. An intact placenta with 3- vessel cord delivered via Rodriguez and there was found to be moderate bleeding.~ Vigorous fundal massage was performed and the fundus was found to be firm. IV oxytocin was given. Examination of the vagina and perineum revealed bilateral inner labial lacerations repaired in the simple running fashion with 3-0 rapide suture, and right perineal first degree laceration repaired in simple running fashion with 3-0 rapide. Left inner labial laceration noted to continue to bleed from suture locations, reinforced with additional simple interrupted 3-0 rapide with good hemostasis. Following the repair, sponge, instrument and needle counts were correct. Mom and baby were both in stable condition in the labor suite. Vitals - Labs Vital Signs - I&O Vital Signs Date Time Temp Pulse Resp B/P (MAP) Pulse Ox O2 Delivery O2 Flow Rate FiO2 05/21/18 07:00 73 18 136/85 (102) Room Air 05/21/18 06:45 81 18 125/110 (115) Room Air 05/21/18 06:30 75 18 125/99 (108) Room Air 05/21/18 04:25 97.6 84 18 134/84 (101) Room Air 05/20/18 23:47 97.9 73 18 129/81 (97) Room Air 05/20/18 19:35 97.9 95 18 127/81 (96) Room Air I & O 05/21/18 07:00 Intake Total 2670 ml Balance 2670 ml Labs Laboratory Tests 05/20/18 19:50: White Blood Count 8.5, Red Blood Count 4.59, Hemoglobin 12.5, Hematocrit 37, Mean Corpuscular Volume 80, Mean Corpuscular Hemoglobin 27, Mean Corpuscular Hemoglobin Concent 34, Red Cell Distribution Width 16.9H, Platelet Count 140, Mean Platelet Volume , Neutrophils (%) (Auto) 69, Lymphocytes (%) (Auto) 18, Monocytes (%) (Auto) 9, Eosinophils (%) (Auto) 4, Basophils (%) (Auto) 0, Neutrophils # (Auto) 5.9, Lymphocytes # (Auto) 1.6, Monocytes # (Auto) 0.7, Eosinophils # (Auto) 0.3, Basophils # (Auto) 0.0 BERRY COOK MD May 21, 2018 1:27 pm
[2018-05-21] MEDS ORDERED: BENZOCAINE/MENTHOL (DERMOPLAST) 56 ML CAN TP PRN (14:30)
[2018-05-21] MEDS ORDERED: WITCH HAZEL(TUCKS) 40 EA JAR TOP PRN (14:30)
[2018-05-21] MEDS: IBUPROFEN 600 MG (MOTRIN) TAB PO SCH ×2 (15:30→22:08)
[2018-05-21] MEDS ORDERED: MISOPROSTOL 200 MCG (CYTOTEC) TABLET PR ONE (19:30)
[2018-05-21] MEDS ORDERED: CATHETER FLUSH 10 ML SYR IV SCH (22:00)
[2018-05-22 04:11] VITALS: BP 114/74
[2018-05-22] MEDS: IBUPROFEN 600 MG (MOTRIN) TAB PO SCH ×4 (04:13→22:39)
[2018-05-22 06:08] LABS: BASOPHILS % (AUTO) 0 % (0-10); EOSINOPHILS # (AUTO) 0.3 10^3/uL (0.0-0.3); EOSINOPHILS % (AUTO) 3 % (0-10); HEMATOCRIT 31 % (35-52); HEMOGLOBIN 10.5 G/DL (11.5-16.0); LYMPHOCYTES # (AUTO) 1.5 X 10^3 (1.0-4.0); LYMPHOCYTES % (AUTO) 15 % (12-44); MEAN CORPUSCULAR HEMOGLOBIN 28 PG (25-34); MEAN CORPUSCULAR HGB CONC 34 G/DL (32-36); MEAN CORPUSCULAR VOLUME 82 FL (80-99); MEAN PLATELET VOLUME 12.3 FL (7.4-10.4); MONOCYTES # (AUTO) 0.9 X 10^3 (0.0-1.0); MONOCYTES % (AUTO) 9 % (0-12); NEUTROPHILS # (AUTO) 7.1 X 10^3 (1.8-7.8); NEUTROPHILS % (AUTO) 73 % (42-75); PLATELET COUNT 101 10^3/uL (130-400); RED BLOOD COUNT 3.81 10^6/uL (4.35-5.85); WHITE BLOOD COUNT 9.8 10^3/uL (4.3-11.0)
--- NOTE | 2018-05-22 07:13 | Anesthesia-Regional Post-Op ---
Regional Patient Condition Mental Status: Alert, Oriented x3 Circulation: Same as Pre-Op Headache: Absent Sensation: Full Recovery Motor Block: Absent Post Op Complications Complications None Follow Up Care/Instructions Patient Instructions None needed. Anesthesia/Patient Condition Patient is doing well, no complaints, stable vital signs, no apparent adverse anesthesia problems. No complications reported per nursing. SANJANA DOMINGUEZ CRNA May 22, 2018 07:13
[2018-05-22 09:00] VITALS: BP 124/85
[2018-05-22] MEDS: PRENATAL VITAMIN 1 EA TAB PO SCH (09:04)
[2018-05-22] MEDS: FERROUS SULF 325 MG (IRON) TAB PO SCH (09:04)
--- NOTE | 2018-05-22 11:02 | Progress Note (SOAP) ---
Subjective Subjective/Events-last exam Patient doing well this AM. Tolerating PO. Having some struggles with breast feeding. Pain well controlled with PO diet Review of Systems Date Seen by Provider: May 22, 2018 Time Seen by Provider: 09:45 Pulmonary: No Dyspnea, No Cough Cardiovascular: No: Chest Pain, Palpitations Gastrointestinal: No: Nausea, Vomiting Objective Exam Last Set of Vital Signs Vital Signs Date Time Temp Pulse Resp B/P (MAP) Pulse Ox O2 Delivery O2 Flow Rate FiO2 05/22/18 09:00 98 Room Air 05/22/18 09:00 98.8 82 18 124/85 (98) Capillary Refill : Less Than 3 Seconds I&O Intake and Output 05/22/18 00:00 Intake Total 4260 ml Balance 4260 ml Intake Oral 500 ml IV Total 3760 ml General: Alert, Oriented X3, Cooperative, No Acute Distress HEENT: Mucous Memb Moist/[place] Lungs: Clear to Auscultation, Normal Air Movement Heart: Regular Rate Abdomen: Normal Bowel Sounds, Soft, No Tenderness, No Hepatosplenomegaly, Other (fundus firm and below umbilicus) Extremities: No Edema, No Tenderness/Swelling Results/Procedures Lab Laboratory Tests 05/22/18 06:00: White Blood Count 9.8, Red Blood Count 3.81L, Hemoglobin 10.5L, Hematocrit 31L, Mean Corpuscular Volume 82, Mean Corpuscular Hemoglobin 28, Mean Corpuscular Hemoglobin Concent 34, Red Cell Distribution Width 17.0H, Platelet Count 101L, Mean Platelet Volume 12.3H, Neutrophils (%) (Auto) 73, Lymphocytes (%) (Auto) 15 , Monocytes (%) (Auto) 9, Eosinophils (%) (Auto) 3, Basophils (%) (Auto) 0, Neutrophils # (Auto) 7.1, Lymphocytes # (Auto) 1.5, Monocytes # (Auto) 0.9, Eosinophils # (Auto) 0.3, Basophils # (Auto) 0.0 Assessment/Plan Assessment/Plan Assessment & Plan 22 yo G1 now P1 PPD #1 via of female infant Plan - Routine post care - Iron def anemia: continue iron supplementation - Breast feeding - Pain controlled with PO meds - Plan for home tomorrow Clinical Quality Measures DVT/VTE Risk/Contraindication: Risk Factor Score Per Nursin RFS Level Per Nursing on Admit: 1=Low/No VTE PPX JASON AMRS MD May 22, 2018 11:02
[2018-05-22 15:00] VITALS: BP 118/72
[2018-05-22 22:00] VITALS: BP 128/75
[2018-05-23 05:20] VITALS: BP 138/92
[2018-05-23] MEDS: IBUPROFEN 600 MG (MOTRIN) TAB PO SCH ×2 (05:20→10:30)
--- NOTE | 2018-05-23 10:11 | Discharge Summary ---
Diagnosis/Chief Complaint Date of Admission May 20, 2018 at 19:21 Date of Discharge 05/23/2018 Admission Diagnosis Admission Diagnosis Induction of Labor 40 weeks Gestation Positive anti-Nancy antibody GBS Positive Discharge Diagnosis Induction of Labor 40 weeks Gestation Positive anti-Nancy antibody GBS Positive s/p spontaneous vaginal delivery mother Chief Complaint/HPI Chief Complaint/HPI OB-Reason for Admission/Chief: Induction of Labor Hx : 1 Hx Para: 0 Expected Date of Delivery: May 18, 2018 Gestational Age in Weeks: 40 Gestational Age in Days: 2 Indication for induction: post dates History of Labs B+, antibody POS for anti-K, RI. HIV/hepB/RPR NR. GC/chlamydia neg. Glucola normal. GBS Pos. Other complicated by anti-K antibody initially at 1:4, consulted with MFM and FOB had negative antigen testing, MFM recommended q2 mo titers and initiate MCA dopplers if increased to 1:16. Titer never increased from 1:4, last check on 03/23. Discharge Summary-Simple/Stand Procedures Vaginal Delivery per Dr. Pulliam, 05/21/2018 at 1149 Discharge Physical Examination Allergies: Coded Allergies: oxycodone (Unverified Allergy, Unknown, NAUSEA, 05/17/18) Vitals & I&Os Vital Sign - Last 12Hours Date Time Temp Pulse Resp B/P (MAP) Pulse Ox O2 Delivery O2 Flow Rate FiO2 05/23/18 05:20 98.6 73 18 138/92 (107) 98 Room Air General Appearance: Alert, Oriented X3, Cooperative, No Acute Distress HEENT: Atraumatic, EOMI, Mucous Memb Moist/[place] Respiratory: Clear to Auscultation Cardiovascular: Regular Rate, Normal S1, Normal S2 Abdominal: Normal Bowel Sounds, Soft, No Tenderness, Other (post gravid) Extremities: No Clubbing, No Cyanosis, No Tenderness/Swelling Skin: No Rashes, No Significant Lesion Neuro: Normal Gait, Normal Speech, Normal Tone, Sensation Intact, Cranial Nerves 3-12 NL Psych/Mental Status: Mental Status NL, Mood NL Hospital Course See final discharge diagnosis. Labs Laboratory Tests Test 05/22/18 06:00 Range/Units White Blood Count 9.8 4.3-11.0 10^3/uL Red Blood Count 3.81 L 4.35-5.85 10^6/uL Hemoglobin 10.5 L 11.5-16.0 G/DL Hematocrit 31 L 35-52 % Mean Corpuscular Volume 82 80-99 FL Mean Corpuscular Hemoglobin 28 25-34 PG Mean Corpuscular Hemoglobin Concent 34 32-36 G/DL Red Cell Distribution Width 17.0 H 10.0-14.5 % Platelet Count 101 L 130-400 10^3/uL Mean Platelet Volume 12.3 H 7.4-10.4 FL Neutrophils (%) (Auto) 73 42-75 % Lymphocytes (%) (Auto) 15 12-44 % Monocytes (%) (Auto) 9 0-12 % Eosinophils (%) (Auto) 3 0-10 % Basophils (%) (Auto) 0 0-10 % Neutrophils # (Auto) 7.1 1.8-7.8 X 10^3 Lymphocytes # (Auto) 1.5 1.0-4.0 X 10^3 Monocytes # (Auto) 0.9 0.0-1.0 X 10^3 Eosinophils # (Auto) 0.3 0.0-0.3 10^3/uL Basophils # (Auto) 0.0 0.0-0.1 10^3/uL Discharge Condition at discharge stable Instructions to patient/family Please see electronic discharge instructions given to patient. Discharge Medications Reviewed and agree with Discharge Medication list on patient's Discharge Instruction sheet Clinical Quality Measures DVT/VTE Risk/Contraindication: Risk Factor Score Per Nursin RFS Level Per Nursing on Admit: 1=Low/No VTE PPX Copy Copies To 1: BERRY PULLIAM MD, MARGARET E DO May 23, 2018 10:11
[2018-05-23 10:30] VITALS: BP 131/81
[2018-05-23] MEDS: FERROUS SULF 325 MG (IRON) TAB PO SCH (10:30)
[2018-05-23] MEDS: PRENATAL VITAMIN 1 EA TAB PO SCH (10:30)
[2018-05-23] MEDS ORDERED: FERR-84 PO ×2 (11:25)
[2018-05-23] MEDS ORDERED: IBUP-844 PO ×2 (11:25)
--- NOTE | 2018-05-23 11:29 | Discharge Instructions ---
Discharge Inst-[facility] Depart Medications New, Converted or Re-Newed RX: Transmitted to Pharmacy New Medications: Ibuprofen (Ibu) 600 Mg Tablet 600 MG PO Q6H for 14 Days, #56 TAB 1 Refill Continued Medications: Ferrous Sulfate (Iron) 325 Mg Tablet 325 MG PO DAILY for 30 Days, #30 TAB (This prescription has been renewed) [id number]/Iron Fumarate/FA/Dss ( 19 Tablet) 1 Each Tablet 1 EACH PO DAILY, TAB Follow Up/Instructions Goal/Follow Up: Dr. Pulliam in 6 weeks Patient Instructions: -medications as prescribed -contact office with any questions or concerns Activity Activity: Activity as Tolerated Driving Instructions: No Driving for 1 Week NO SMOKING: NO SMOKING Nothing Inside Vagina: No Douching, No [place], No Tampons Diet Discharge Diet: No Restrictions Return to The Hospital For: chest pain or pressure, shortness of breath not improved with rest, temp >101, foul smelling vaginal discharge or odor, clots larger than the size of your fist, heavy vaginal bleeding that saturates more than 1 pad per hour for 2 hours in a row, severe pain not controlled by prescribed medications, severe headache not controlled by prescribed medication, if directed by deputy commonwealth's attorney provider or with any other emergent complaints or concerns Symptoms to Report to : Bleeding Excessive, Eyesight Changes, Pain Increased , Fever Over 101 Degrees F, Pain/Pressure in Chest, Pain/Pressure in Jaw, Vaginal Bleeding Increase, Vaginal Discharge Foul, Questions/Concerns, Shortness of Breath For Any Problems or Questions: Contact Your Physician, Go to Emergency Room, Go to [facility] Skin/Wound Care Bathing Instructions: Tub, Shower Copies To 1: BERRY PULLIAM MD, MARGARET E DO May 23, 2018 11:29
== END 2018-05-23 13:05 | disposition home or self-care (01) | DRG 775 ==
LOC: LDRP 19:21
PROVIDERS: ADMIT Family Medicine; ATTEND Family Medicine
PROC: 3E0P7GC Introduction of Other Therapeutic Substance into Female Reproductive, Via Natural or Artificial Opening (ICD-10-PCS; 2018-05-20)
PROC: 10E0XZZ Delivery of Products of Conception, External Approach (ICD-10-PCS; principal; 2018-05-21)
PROC: 0HQ9XZZ Repair Perineum Skin, External Approach (ICD-10-PCS; 2018-05-21)
DX: O48.0 Post-term pregnancy (principal); O99.824 Streptococcus B carrier state complicating childbirth; O36.0130 Maternal care for anti-D [Rh] antibodies, third trimester, not applicable or unspecified; O70.0 First degree perineal laceration during delivery; O99.344 Other mental disorders complicating childbirth; F32.9 Major depressive disorder, single episode, unspecified; F41.9 Anxiety disorder, unspecified; O99.013 Anemia complicating pregnancy, third trimester; O77.0 Labor and delivery complicated by meconium in amniotic fluid; D50.9 Iron deficiency anemia, unspecified; Z3A.40 40 weeks gestation of pregnancy; Z37.0 Single live birth; Z87.891 Personal history of nicotine dependence
CPT/HCPCS: 36415; 85025; 86850; 86870; 86900; 86901; 88307

== ENCOUNTER 2020-10-04 12:36 | Emergency (ER) | payer MEDICAID ==
[~2020-10-04] VITALS: Ht 154.9 cm; Wt 59.0 kg
[~2020-10-04 12:36] MED LIST changes: +IBUP-844 PO
--- NOTE | 2020-10-04 13:12 | ED Upper Extremity ---
General Chief Complaint: Upper Extremity Stated Complaint: L HAND PAIN Source: patient Exam Limitations: no limitations History of Present Illness Date Seen by Provider: Oct 04, 2020 Time Seen by Provider: 12:59 Initial Comments Patient presents ER by private conveyance with chief complaint of fall about 5:00 this morning while trying to make her daughter's bottle stretched left hand. She is having some swelling and decreased mobility as well as decreased sensation in her third and fourth digit. No previous fracture or surgery to this area. Allergies and Home Medications Allergies Coded Allergies: oxycodone (Unverified Allergy, Unknown, NAUSEA, 05/17/18) Home Medications Ferrous Sulfate 325 Mg Tablet, 325 MG PO DAILY Prescribed by: RERE SHEETS on 05/23/18 1125 Hydrocodone/Acetaminophen 1 Each Tablet, 1 EACH PO Q6H PRN for PAIN-BREAKTHROUGH Prescribed by: TUSHAR LANDERS on 10/04/20 1401 Ibuprofen 600 Mg Tablet, 600 MG PO Q6H Prescribed by: RERE SHEETS on 05/23/18 1125 [id number]/Iron Fumarate/FA/Dss 1 Each Tablet, 1 EACH PO DAILY, (Reported) Patient Home Medication List Home Medication List Reviewed: Yes Review of Systems Constitutional: No chills, No diaphoresis EENTM: No ear discharge, No hearing loss Respiratory: No cough, No short of breath Cardiovascular: No Hx of Intervention, No palpitations Gastrointestinal: No abdominal pain, No constipation, No diarrhea LMP: Sep 03, 2020 Control/STD Prophylaxis: None Musculoskeletal: No back pain, No joint pain All Other Systems Reviewed Negative Unless Noted: Yes Past Rpvpwal-Gqqbpu-Zkuick Hx Patient Social History Alcohol Use: Occasionally Uses Alcohol Beverage of Choice: Beer Drug of Choice: MARIJUANA Smoking Status: Current Everyday Smoker Type Used: Cigarettes 2nd Hand Smoke Exposure: Yes Recent Hopitalizations: Yes (only at age 6 when spleen repaired and appendectomy ) Immunizations Up To Date Tetanus Booster (TDap): Less than 5yrs PED Vaccines UTD: Yes Seasonal Allergies Seasonal Allergies: No Past Medical History Surgeries: Yes (repaired spleen and appendectomy) Abdominal, Eye Surgery Respiratory: No Cardiac: No Neurological: No Reproductive Disorders: No Female Reproductive Disorders: Denies Sexually Transmitted Disease: No HIV/AIDS: No Genitourinary: No UTI-Chronic Gastrointestinal: Yes (SPLEEN REPAIR) Musculoskeletal: No Endocrine: No HEENT: No Cancer: No Psychosocial: Yes Anxiety Integumentary: No Blood Disorders: No Adverse Reaction/Blood Tranf: No Physical Exam Vital Signs Vital Signs - First Documented 10/04/20 13:03 Temp 36.4 Pulse 85 Resp 18 B/P (MAP) 139/72 (94) Pulse Ox 99 Capillary Refill : Height, Weight, BMI Height: 5'5.00" Weight: 154lbs. 2.0oz. [id number]; 25.7 BMI Method:Stated General Appearance: WD/WN, mild distress Neck: full range of motion, normal inspection Cardiovascular: normal peripheral pulses, regular rate, rhythm Respiratory: no respiratory distress, no accessory muscle use Elbow/Forearm: normal inspection, non-tender, no evidence of injury, normal ROM, Bilateral Wrist: Yes normal inspection, Yes non-tender, Yes no evidence of injury, Yes normal ROM Hand: Left, bone tenderness (Metatarsals), ecchymosis, limited ROM (Middle 2 fingers have limited range of flexion but full extension secondary to pain), soft tissue tenderness (Dorsal left hand), swelling (Dorsal left hand) Neurologic/Psychiatric: alert, normal mood/affect, oriented x 3 Procedures/Interventions Suture Size: 4-0 Splinting and Joint Reduction : Location: Left hand Pre-Proc Neuro Vasc Exam: normal Post-Proc Neuro Vasc Exam: normal Progress Colle splint with 4 inch Phong wrap Progress/Results/Core Measures Results/Orders My Orders Orders - TUSHAR LANDERS Ibuprofen Tablet (Motrin Tablet) (10/04/20 13:15) Hand, Left, 3 Views (10/04/20 13:11) Medications Given in ED Current Medications Medications Dose Ordered Sig/Bradley Route Start Time Stop Time Status Last Admin Dose Admin Ibuprofen 800 mg ONCE ONCE PO 10/04/20 13:15 10/04/20 13:16 DC 10/04/20 13:22 800 MG Vital Signs/I&O 10/04/20 13:03 Temp 36.4 Pulse 85 Resp 18 B/P (MAP) 139/72 (94) Pulse Ox 99 Progress Progress Note : Time: :21 Progress Note Ice pack, Motrin and to 3 views left hand. Diagnostic Imaging Diagonstic Imaging: Xray Plain Films/CT/US/NM/MRI: hand (Left) Comments Distal end of the fourth metacarpal nondisplaced, minimally angulated fracture. Min's fracture NAME: SHMUEL MICHAEL MED REC#: [id number] PT STATUS: REG ER : 1995 PHYSICIAN: TUSHAR LNADERS MD ADMIT DATE: 10/04/20/ER Draft Date of Exam:10/04/20 HAND, LEFT, 3 VIEWS INDICATION: Left hand injury with pain. FINDINGS: AP, oblique and lateral views of the left hand reveal mildly angulated, mildly impacted fracture at the distal shaft of fourth metacarpal. No intra-articular offset is identified. There may be mild foreshortening of the fourth finger. No other definite fracture or malalignment is identified. IMPRESSION: Mildly overriding, slightly angulated distal fourth metacarpal shaft fracture. Fracture line extends to the articular surface of the fourth metacarpal head without significant offset. Dictated on workstation # [id number] Dict: 10/04/20 1342 Trans: 10/04/20 1349 [facility] [id number] Interpreted by: DAISHA AZUL MD Electronically signed by: Reviewed: Reviewed by Me Departure Impression Primary Impression: Fracture, metacarpal, neck Qualified Codes: S62.365A - Nondisplaced fracture of neck of fourth metacarpal bone, left hand, initial encounter for closed fracture Disposition: 01 HOME, SELF-CARE Condition: Stable Departure-Patient Inst. Decision time for Depature: 13:56 Referrals: BERRY COOK MD (PCP/Family) Primary Care Physician ANIA HODGSON MD Patient Instructions: Boxer's Fracture (DC) Add. Discharge Instructions: Ice for 20 minutes at least every 2 hours for the first 2 to 3 days. Elevate your hand above the level of your heart for swelling and pain control. Keep the splint and Phong wrap on at all times for compression, immobilization and pain control except to bathe. Next week follow-up with Dr. Hodgson, orthopedic surgery. Call for an appointment today. Tylenol 1000 mg every 8 hours as necessary for pain. Ibuprofen 800 mg every 8 hours as necessary for pain. Hydrocodone 1 tablet every 6 hours as necessary for breakthrough, severe pain. Will cause drowsiness and constipation. All discharge instructions reviewed with patient and/or family. Voiced understanding. Scripts Hydrocodone/Acetaminophen (Hydrocodone-Acetamin 5-325 mg) 1 Each Tablet 1 EACH PO Q6H PRN for PAIN-BREAKTHROUGH, #14 TAB 0 Refills Prov: TUSHAR LANDERS 10/04/20 Work/School Note: Family Work Note, Patient Received Medical Care In the Emergency Department On: Oct 04, 2020 Patient Will Be Able to Return to Work/School On: Oct 05, 2020 Patient Restrictions: none Work Release Form Date Seen in the Emergency Department: Oct 04, 2020 Return to Work: Oct 05, 2020 Restrictions: Need Release from Doctor Other Restrictions Listed Below: May not use left hand until cleared by physician or 10/26/2020. Copy Copies To 1: ANIA HODGSON MD, TITUS J Oct 04, 2020 13:12
[2020-10-04] MEDS ORDERED: IBUPROFEN 800 MG (MOTRIN) TAB PO ONE (13:15)
--- NOTE | 2020-10-04 13:50 | Diagnostic Imaging Report ---
INDICATION: Left hand injury with pain. FINDINGS: AP, oblique and lateral views of the left hand reveal mildly angulated, mildly impacted fracture at the distal shaft of fourth metacarpal. No intra-articular offset is identified. There may be mild foreshortening of the fourth finger. No other definite fracture or malalignment is identified. IMPRESSION: Mildly overriding, slightly angulated distal fourth metacarpal shaft fracture. Fracture line extends to the articular surface of the fourth metacarpal head without significant offset. Dictated by: Dictated on workstation # [id number]
[2020-10-04] MEDS ORDERED: ACHD5005 PO (14:00)
[2020-10-04 14:10] VITALS: BP 139/79
== END 2020-10-04 14:09 | disposition home or self-care (01) ==
LOC: EDUNIT# 12:36 → ER 12:37
DX: S62.325A Displaced fracture of shaft of fourth metacarpal bone, left hand, initial encounter for closed fracture (principal); Z88.5 Allergy status to narcotic agent; F17.210 Nicotine dependence, cigarettes, uncomplicated; W19.XXXA Unspecified fall, initial encounter
CPT/HCPCS: 73130

== ENCOUNTER → 2020-10-09 | Outpatient (CLI) | payer MEDICAID ==
[~2020-10-09] MED LIST changes: +ACHD5005 PO
== END ==
LOC: ORTHO 09:14
PROVIDERS: ATTEND Orthopaedic Surgery
DX: S62.335A Displaced fracture of neck of fourth metacarpal bone, left hand, initial encounter for closed fracture (principal)

== ENCOUNTER → 2020-10-23 | Outpatient (CLI) | payer MEDICAID ==
--- NOTE | 2020-10-23 12:19 | Diagnostic Imaging Report ---
INDICATION: Followup fracture. COMPARISON: 10/04/2020 FINDINGS: Multiple radiographic views of the left hand were obtained. Again identified is nonacute fracture involving the distal 4th metacarpal. There is mild palmar subluxation of the distal fracture fragment as well as mild angulation with the apex projecting posteriorly. This is stable compared to prior exam. No significant bridging callus formation is seen to suggest significant interval healing. Note is also made of focal cortical lucency involving the posterior margins of the proximal metacarpal on the lateral view. This is felt to correspond to the 3rd metacarpal, although fracture line is much less conspicuous on the PA and oblique views. Joint spaces are maintained. No unexpected radiopaque foreign bodies are seen. IMPRESSION: 1. Nonacute fractures of the 3rd and 4th metacarpals as described above. Dictated by: Dictated on workstation # [id number]
== END ==
LOC: ORTHO 10:54
PROVIDERS: ATTEND Orthopaedic Surgery
DX: S62.335A Displaced fracture of neck of fourth metacarpal bone, left hand, initial encounter for closed fracture (principal); X58.XXXA Exposure to other specified factors, initial encounter
CPT/HCPCS: 73130

== ENCOUNTER → 2020-11-22 | Outpatient (CLI) | payer MEDICAID ==
--- NOTE | 2020-11-22 10:17 | Diagnostic Imaging Report ---
Indication: Left hand injury AP, oblique, and lateral views of the left hand are obtained and compared with 10/23/2020 There is a fracture of the distal aspect of the 4th metacarpal, with mild impaction. The appearance and alignment are not changed compared to the prior study. There is a nondisplaced fracture of the base of the 3rd metacarpal which is in stable alignment. Remaining bony structures are intact. IMPRESSION: Stable alignment of fracture distal aspect of the 4th metacarpal and fracture proximal aspect of 3rd metacarpal. Dictated by: Dictated on workstation # [id number]
== END | disposition home or self-care (01) ==
LOC: ORTHO 09:02
PROVIDERS: ATTEND Orthopaedic Surgery
DX: S62.335A Displaced fracture of neck of fourth metacarpal bone, left hand, initial encounter for closed fracture (principal); X58.XXXA Exposure to other specified factors, initial encounter
CPT/HCPCS: 73130